=== PATIENT | female | born 1970 | race Caucasian/White ===

== ENCOUNTER → 2018-12-25 | Day surgery (SDC) | payer OTHER ==
[2018-12-21 10:07] VITALS: BMI 26.6
[~2018-12-25] MED LIST: LACTATED RINGERS 1,000 ML IV SCH; LIDOCAINE 1% 20 ML VIAL (10MG/ML) FOR IV START INTRADERMA PRN; MIDAZOLAM 2 MG/2 ML VIAL IV ONE; PROPOFOL 10 MG/ML 20 ML VIAL IV ONE
[2018-12-25 10:54] VITALS: RESP 16; TEMP 97.8
--- NOTE | 2018-12-25 13:19 | P.PCN ---
Date of Procedure: 12/25/18 Description of Procedure: BRIEF HISTORY: Patient is a 48-year-old pleasant female scheduled for an elective colonoscopy as a part of investigation of altered bowel function and diarrhea. No prior colonoscopy reported. No family history of colon cancer. PROCEDURE PERFORMED: Colonoscopy with polypectomy and biopsy. PREOPERATIVE DIAGNOSIS: Diarrhea, altered bowel function, no prior colonoscopy. ESTIMATED BLOOD LOSS: Minimal. IV sedation per Anesthesia. PROCEDURE: After informed consent was obtained, the patient, was brought into the endoscopy unit. IV sedation was administered by Anesthesia under continuous monitoring. Digital rectal examination was normal. Initially the Olympus CF-190 flexible video colonoscope was then inserted in the rectum, gradually advanced into the cecum without any difficulty. Careful examination was performed as the scope was gradually being withdrawn. Ileocecal valve and the appendiceal orifice were visualized and appeared normal. Prep was excellent. Mucosa of the cecum, ascending colon, transverse colon, descending colon, sigmoid colon, and rectum appeared normal. Diminutive 3 mm ascending colon polyp removed with cold forcep polypectomy. Diminutive 2 mm hepatic flexure polyp removed with cold forcep polypectomy. Diminutive 2 mm rectal polyp removed with cold forcep polypectomy. Pedunculated 11 mm sigmoid polyp removed with hot snare polypectomy. Random biopsies of the terminal ileum, right colon and left colon given altered bowel function. Retroflexion was performed in the rectum and no lesions were seen. The patient tolerated the procedure well. IMPRESSION: Diminutive polyps removed with cold forceps polypectomy from the ascending colon, hepatic flexure, and rectum. Pedunculated polyp removed with hot snare polypectomy. Random biopsies of the terminal ileum, right colon and left colon. RECOMMENDATIONS: Findings of this examination were discussed with the patient family. Okay to resume diet. Okay to resume medications. Recommend repeat colonoscopy in 3 years pending pathology from polypectomies. Await pathology from biopsies and polypectomy. Follow-up in gastroenterology clinic as previously scheduled.
[2018-12-25 13:37] VITALS: BP 142/85; PULSE 74
== END | disposition home or self-care (01) ==
LOC: ORWHC2ENDO 10:35
PROVIDERS: ATTEND Internal Medicine
DX: D12.2 Benign neoplasm of ascending colon (principal); D12.3 Benign neoplasm of transverse colon; D12.8 Benign neoplasm of rectum; K63.5 Polyp of colon; Z88.2 Allergy status to sulfonamides; F17.200 Nicotine dependence, unspecified, uncomplicated; Z79.899 Other long term (current) drug therapy
CPT/HCPCS: 88305; 45380; 45385; J2250; J2704

== ENCOUNTER → 2019-01-15 | Outpatient (CLI) | payer OTHER ==
[2019-01-15 18:01] LABS: Gliadin AB IgA, Deaminated NEGATIVE (NEGATIVE); Gliadin AB IgA, Unit 0.2 U/mL; Gliadin AB IgG, Deaminated NEGATIVE (NEGATIVE)
== END | disposition home or self-care (01) ==
LOC: LABWHC1 09:41
PROVIDERS: ATTEND Physician Assistant
DX: R19.7 Diarrhea, unspecified (principal)
CPT/HCPCS: 36415; 83516

== ENCOUNTER 2019-07-18 09:03 | Emergency (ER) | payer OTHER ==
[2019-07-18 09:08] VITALS: TEMP 97.9
[2019-07-18] MEDS ORDERED: SODIUM CHLORIDE 0.9% 1,000 ML IV STA (09:15)
[2019-07-18] MEDS ORDERED: KETOROLAC 30 MG/ML 1 ML VIAL IVP STA (09:15)
--- NOTE | 2019-07-18 09:22 | ED ---
Abdominal Pain HPI - General Chief Complaint: Abdominal Pain Stated Complaint: Kidney stone Time Seen by Provider: 07/18/19 09:10 Source: patient, RN notes reviewed Mode of arrival: ambulatory Limitations: no limitations - History of Present Illness Initial Comments: 49-year-old female presents emergency Department chief complaint of left flank pain. Patient states started yesterday progressively worsened. She states nothing makes it feel better or worse. Patient has tried any [id number] medications, size with no relief of symptoms. Patient states that she's had prior hysterectomy. Patient has urinary frequency no dysuria no hematuria d enies any fevers or chills no nausea vomiting diarrhea constipation out of the usual. She states she has IBS. - Related Data Home Medications Medication Instructions Recorded Confirmed ALPRAZolam [Xanax] 1 mg PO DAILY PRN 12/21/18 12/25/18 Escitalopram [Lexapro] 20 mg PO DAILY 12/21/18 12/25/18 Previous Rx's Medication Instructions Recorded Cyclobenzaprine [Flexeril] 10 mg PO TID PRN #15 tab 07/18/19 Allergies Allergy/AdvReac Type Severity Reaction Status Date / Time Sulfa (Sulfonamide Allergy Rash/Hives Verified 07/18/19 09:08 Antibiotics) Review of Systems ROS Statement: Those systems with pertinent positive or pertinent negative responses have been documented in the HPI. ROS Other: All systems not noted in ROS Statement are negative. Past Medical History Past Medical History: No Reported History Additional Past Medical History / Comment(s): chronic diarrhea History of Any Multi-Drug Resistant Organisms: None Reported Past Surgical History: Hysterectomy Additional Past Surgical History / Comment(s): laparoscopic ovary removed Past Anesthesia/Blood Transfusion Reactions: Motion Sickness, Postoperative Nausea & Vomiting (PONV) Past Psychological History: Anxiety Smoking Status: Current every day smoker Past Alcohol Use History: Daily Past Drug Use History: None Reported - Past Family History Mother Family Medical History: Pulmonary Embolus General Exam Limitations: no limitations General appearance: alert, in no apparent distress Head exam: Present: atraumatic, normocephalic, normal inspection Eye exam: Present: normal appearance, PERRL, EOMI. Absent: scleral icterus, conjunctival injection, periorbital swelling ENT exam: Present: normal exam, normal oropharynx, mucous membranes moist Neck exam: Present: normal inspection, full ROM. Absent: tenderness, meningismus, lymphadenopathy Respiratory exam: Present: normal lung sounds bilaterally. Absent: respiratory distress, wheezes, rales, rhonchi, stridor Cardiovascular Exam: Present: regular rate, normal rhythm, normal heart sounds. Absent: systolic murmur, diastolic murmur, rubs, gallop, clicks GI/Abdominal exam: Present: soft, tenderness (LLQ moderate), normal bowel sounds. Absent: distended, guarding, rebound, rigid Back exam: Present: full ROM, CVA tenderness (L). Absent: tenderness, CVA tenderness (R) Neurological exam: Present: alert, oriented X3, CN II-XII intact Skin exam: Present: warm, dry, intact, normal color. Absent: rash Course Vital Signs 07/18/19 09:05 Temperature 97.9 F Pulse Rate 98 Respiratory 18 Rate Blood Pressure 183/96 O2 Sat by Pulse 99 Oximetry Medical Decision Making - Medical Decision Making 49-year-old female presented for left flank, abdominal pain. Patient's found to have umbilical hernia. There is no other significant findings intermittent to left flank pain. Patient has no weakness, lower extremity pulses are equal bila terally. Abdomen is minimally tender, soft Patient's pain is improved at this time. She will be discharged with follow-up return parameters were discussed. - Lab Data Result diagrams: 07/18/19 09:22 07/18/19 09:22 Lab Results 07/18/19 07/18/19 07/18/19 Range/Units 09:22 09:22 09:22 WBC 6.0 (3.8-10.6) k/uL RBC 4.58 (3.80-5.40) m/uL Hgb 15.3 (11.4-16.0) gm/dL Hct 45.1 (34.0-46.0) % MCV 98.5 (80.0-100.0) fL MCH 33.4 (25.0-35.0) pg MCHC 33.9 (31.0-37.0) g/dL RDW 13.9 (11.5-15.5) % Plt Count 346 (150-450) k/uL Neutrophils % 58 % Lymphocytes % 33 % Monocytes % 5 % Eosinophils % 1 % Basophils % 1 % Neutrophils # 3.5 (1.3-7.7) k/uL Lymphocytes # 2.0 (1.0-4.8) k/uL Monocytes # 0.3 (0-1.0) k/uL Eosinophils # 0.1 (0-0.7) k/uL Basophils # 0.0 (0-0.2) k/uL Sodium 138 (137-145) mmol/L Potassium 4.0 (3.5-5.1) mmol/L Chloride 107 (98-107) mmol/L Carbon Dioxide 23 (22-30) mmol/L Anion Gap 8 mmol/L BUN 11 (7-17) mg/dL Creatinine 0.68 (0.52-1.04) mg/dL Est GFR (CKD-EPI)AfAm >90 (>60 ml/min/1.73 sqM) Est GFR (CKD-EPI)NonAf >90 (>60 ml/min/1.73 sqM) Glucose 103 H (74-99) mg/dL Plasma Lactic Acid Cas 1.6 (0.7-2.0) mmol/L Calcium 9.7 (8.4-10.2) mg/dL Total Bilirubin 0.5 (0.2-1.3) mg/dL AST 40 H (14-36) U/L ALT 49 H (4-34) U/L Alkaline Phosphatase 92 (38-126) U/L Total Protein 7.8 (6.3-8.2) g/dL Albumin 4.5 (3.5-5.0) g/dL Amylase 69 (30-110) U/L Lipase 240 (23-300) U/L Urine Color Urine Appearance (Clear) Urine pH (5.0-8.0) Ur Specific [place] (1.001-1.035) Urine Protein (Negative) Urine Glucose (UA) (Negative) Urine Ketones (Negative) Urine Blood (Negative) Urine Nitrite (Negative) Urine Bilirubin (Negative) Urine Urobilinogen (<2.0) mg/dL Ur Leukocyte Esterase (Negative) 07/18/19 Range/Units 09:45 WBC (3.8-10.6) k/uL RBC (3.80-5.40) m/uL Hgb (11.4-16.0) gm/dL Hct (34.0-46.0) % MCV (80.0-100.0) fL MCH (25.0-35.0) pg MCHC (31.0-37.0) g/dL RDW (11.5-15.5) % Plt Count (150-450) k/uL Neutrophils % % Lymphocytes % % Monocytes % % Eosinophils % % Basophils % % Neutrophils # (1.3-7.7) k/uL Lymphocytes # (1.0-4.8) k/uL Monocytes # (0-1.0) k/uL Eosinophils # (0-0.7) k/uL Basophils # (0-0.2) k/uL Sodium (137-145) mmol/L Potassium (3.5-5.1) mmol/L Chloride (98-107) mmol/L Carbon Dioxide (22-30) mmol/L Anion Gap mmol/L BUN (7-17) mg/dL Creatinine (0.52-1.04) mg/dL Est GFR (CKD-EPI)AfAm (>60 ml/min/1.73 sqM) Est GFR (CKD-EPI)NonAf (>60 ml/min/1.73 sqM) Glucose (74-99) mg/dL Plasma Lactic Acid Cas (0.7-2.0) mmol/L Calcium (8.4-10.2) mg/dL Total Bilirubin (0.2-1.3) mg/dL AST (14-36) U/L ALT (4-34) U/L Alkaline Phosphatase (38-126) U/L Total Protein (6.3-8.2) g/dL Albumin (3.5-5.0) g/dL Amylase (30-110) U/L Lipase (23-300) U/L Urine Color Yellow Urine Appearance Clear (Clear) Urine pH 6.0 (5.0-8.0) Ur Specific [place] 1.029 (1.001-1.035) Urine Protein Trace H (Negative) Urine Glucose (UA) Negative (Negative) Urine Ketones Trace H (Negative) Urine Blood Negative (Negative) Urine Nitrite Negative (Negative) Urine Bilirubin Negative (Negative) Urine Urobilinogen 3.0 (<2.0) mg/dL Ur Leukocyte Esterase Negative (Negative) Disposition Clinical Impression: Umbilical hernia, Left flank pain Disposition: HOME SELF-CARE Condition: Stable Instructions (If sedation given, give patient instructions): Abdominal Pain (ED) Additional Instructions: Please return to the Emergency Department if symptoms worsen or any other concerns. Prescriptions: Cyclobenzaprine [Flexeril] 10 mg PO TID PRN #15 tab PRN Reason: Muscle Spasm Is patient prescribed a controlled substance at d/c from ED?: No Referrals: Greyson Butt MD [Primary Care Provider] - 1-2 days Carlos Kelly MD [STAFF PHYSICIAN] - 1-2 days Time of Disposition: 10:37
[2019-07-18 09:40] LABS: Basophils % (A) 1 %; Eosinophils # (A) 0.1 k/uL (0-0.7); Eosinophils % (A) 1 %; HCT 45.1 % (34.0-46.0); HGB 15.3 gm/dL (11.4-16.0); Lymphocytes % (A) 33 %; MCH 33.4 pg (25.0-35.0); MCHC 33.9 g/dL (31.0-37.0); MCV 98.5 fL (80.0-100.0); Mean Platelet Volume 6.6; Monocytes # (A) 0.3 k/uL (0-1.0); Monocytes % (A) 5 %; Neutrophils # (A) 3.5 k/uL (1.3-7.7); Neutrophils % (A) 58 %; Platelet Count 346 k/uL (150-450); RBC 4.58 m/uL (3.80-5.40); RDW 13.9 % (11.5-15.5)
[2019-07-18 09:45] LABS: ALT 49 U/L (4-34); AST 40 U/L (14-36); African American GFR (CKD) >90 (>60 ml/min/1.73 sqM); Albumin 4.5 g/dL (3.5-5.0); Alkaline Phosphatase 92 U/L (38-126); Amylase 69 U/L (30-110); Anion Gap 8 mmol/L; Blood Urea Nitrogen 11 mg/dL (7-17); Calcium 9.7 mg/dL (8.4-10.2); Carbon Dioxide 23 mmol/L (22-30); Chloride 107 mmol/L (98-107); Glucose 103 mg/dL (74-99); Non-African American GFR(CKD) >90 (>60 ml/min/1.73 sqM); Sodium 138 mmol/L (137-145); Total Bilirubin 0.5 mg/dL (0.2-1.3); Total Protein 7.8 g/dL (6.3-8.2)
[2019-07-18] MEDS ORDERED: ONDANSETRON 4 MG/2 ML VIAL IVP STA (10:06)
[2019-07-18] MEDS ORDERED: MORPHINE SULFATE 4 MG/ML SYRINGE IVP STA (10:06)
[2019-07-18 10:12] LABS: Appearance,Urine Clear (Clear); Bilirubin,Urine Negative (Negative); Blood,Urine Negative (Negative); Color,Urine Yellow; Glucose,Urine (UA) Negative (Negative); Ketones,Urine Trace (Negative); Leukocyte Esterase,Urine Negative (Negative); Nitrite,Urine Negative (Negative); Protein,Urine Trace (Negative); Specific Gravity,Urine 1.029 (1.001-1.035)
--- NOTE | 2019-07-18 10:18 | CT ---
EXAMINATION TYPE: CT abdomen pelvis wo con DATE OF EXAM: 07/18/2019 HISTORY: Lt flank pain CT DLP: 622.7 mGycm. Automated Exposure Control for Dose Reduction was Utilized. TECHNIQUE: CT scan of the abdomen and pelvis is performed without oral or IV contrast. COMPARISON: NONE FINDINGS: Within the limitations of a non-contrast study, the following observations are made. LUNG BASES: Mild medial left basilar linear scarring and/or atelectasis. LIVER/GB: Visualized liver is heterogeneously hypodense consistent with diffuse fatty infiltration. C ontracted gallbladder. PANCREAS: No significant abnormality is seen. SPLEEN: No significant abnormality is seen. ADRENALS: No significant abnormality is seen. KIDNEYS: No renal stones or hydronephrosis is seen bilaterally. No intraluminal calculi in the poorly distended bladder. BOWEL: Suboptimal evaluation of bowel without enteric contrast. No suspicious small or large bowel di latation seen. Normal-appearing appendix from cecum in the right upper pelvis. Few scattered colonic diverticula most prominent in the sigmoid colon. No CT evidence for acute diverticulitis. GENITAL ORGANS: Uterus surgically absent or markedly atrophic. LYMPH NODES: No greater than 1cm abdominal or pelvic lymph nodes are appreciated. OSSEOUS STRUCTURES: No significant abnormality is seen. OTHER: Mild calcified plaque of aorta extends into branch vessels. Small umbilical hernia containing fat and tiny mesenteric vessels. IMPRESSION: No renal stones or hydronephrosis is seen bilaterally. No acute finding identified to acc ount for patient's symptoms of left flank pain.
[2019-07-18] MEDS ORDERED: ACET/COD 300 MG/30 MG STARTER PACK 6 TAB BTL PO STA (10:36)
[2019-07-18] MEDS ORDERED: ORPHENADRINE 30 MG/ML 2 ML VIAL IVP STA (10:37)
[2019-07-18 10:57] VITALS: BP 161/91; PULSE 86; RESP 16
== END 2019-07-18 10:57 | disposition home or self-care (01) ==
LOC: EC 09:03
DX: K42.9 Umbilical hernia without obstruction or gangrene (principal); F41.9 Anxiety disorder, unspecified; F17.200 Nicotine dependence, unspecified, uncomplicated; Z79.899 Other long term (current) drug therapy; Z88.2 Allergy status to sulfonamides
CPT/HCPCS: 36415; 80053; 82150; 83605; 83690; 85025; 81003; 74176; 99284; 96374; 96375 ×3; 96361; J2270; J2360; J2405; J1885

== ENCOUNTER 2019-07-20 10:21 | Emergency (ER) | payer OTHER ==
[2019-07-20 10:41] VITALS: TEMP 98.1
[2019-07-20] MEDS ORDERED: MORPHINE SULFATE 4 MG/ML SYRINGE IV STA (10:58)
[2019-07-20] MEDS ORDERED: HYDROmorphone 1 MG/ML 1 ML SYRINGE IVP STA (10:58)
[2019-07-20] MEDS ORDERED: ONDANSETRON 4 MG/2 ML VIAL IVP STA (10:58)
[2019-07-20] MEDS ORDERED: PANTOPRAZOLE 40 MG/10 ML VIAL IVP STA (10:58)
[2019-07-20] MEDS ORDERED: SODIUM CHLORIDE 0.9% 1,000 ML IV STA ×2 (10:58)
--- NOTE | 2019-07-20 11:07 | ED ---
Abdominal Pain HPI - General Chief Complaint: Abdominal Pain Stated Complaint: lower L abd pain Time Seen by Provider: 07/20/19 10:44 Source: patient, family, RN notes reviewed, old records reviewed Mode of arrival: ambulatory Limitations: no limitations - History of Present Illness Initial Comments: 49-year-old male presents today [id number] for concern for left-sided abdominal pain. Patient is in the emergency room 2 days ago for similar complaints. At that Time she believed she was having kidney stone. Full evaluation and CT without contrast showed no acute process besides small umbilical hernia. Patient reports she is continued to have some left-sided flank discomfort, and has been rubbing the area. She reports bruises to the areas she has been massaging. She denies any nausea or vomiting. Does report she did have a normal bowel movement yesterday. Surgical history includes hysterectomy. - Related Data Home Medications Medication Instructions Recorded Confirmed ALPRAZolam [Xanax] 1 mg PO DAILY PRN 12/21/18 07/20/19 Escitalopram [Lexapro] 20 mg PO HS 12/21/18 07/20/19 Previous Rx's Medication Instructions Recorded Cyclobenzaprine [Flexeril] 10 mg PO TID PRN #15 tab 07/18/19 HYDROcodone/APAP 5-325MG [[place] 1 tab PO Q6HR PRN #10 tab 07/20/19 5-325] Allergies Allergy/AdvReac Type Severity Reaction Status Date / Time Sulfa (Sulfonamide Allergy Rash/Hives Verified 07/20/19 13:33 Antibiotics) Review of Systems ROS Statement: Those systems with pertinent positive or pertinent negative responses have been documented in the HPI. ROS Other: All systems not noted in ROS Statement are negative. Past Medical History Past Medical History: No Reported History Additional Past Medical History / Comment(s): chronic diarrhea History of Any Multi-Drug Resistant Organisms: None Reported Past Surgical History: Hysterectomy Additional Past Surgical History / Comment(s): laparoscopic ovary removed Past Anesthesia/Blood Transfusion Reactions: Motion Sickness, Postoperative Nausea & Vomiting (PONV) Past Psychological History: Anxiety Smoking Status: Current every day smoker Past Alcohol Use History: Daily Past Drug Use History: None Reported - Past Family History Mother Family Medical History: Pulmonary Embolus General Exam - General Exam Comments Initial Comments: 49 year old female, no acute distress. Limitations: no limitations General appearance: alert, in no apparent distress Head exam: Present: atraumatic, normocephalic, normal inspection Eye exam: Present: normal appearance, PERRL, EOMI. Absent: scleral icterus, conjunctival injection, periorbital swelling ENT exam: Present: normal exam, mucous membranes moist Neck exam: Present: normal inspection. Absent: tenderness, meningismus, lymphadenopathy Respiratory exam: Present: normal lung sounds bilaterally. Absent: respiratory distress, wheezes, rales, rhonchi, stridor Cardiovascular Exam: Present: regular rate, normal rhythm, normal heart sounds. Absent: systolic murmur, diastolic murmur, rubs, gallop, clicks GI/Abdominal exam: Present: soft, tenderness (Tenderness over L flank, small bruises over R flank and lower back), normal bowel sounds. Absent: distended, guarding, rebound, rigid Extremities exam: Present: normal inspection, full ROM, normal capillary refill. Absent: tenderness, pedal edema, joint swelling, calf tenderness Back exam: Present: normal inspection Neurological exam: Present: alert, oriented X3, CN II-XII intact Psychiatric exam: Present: normal affect, normal mood Skin exam: Present: warm, dry, intact, normal color. Absent: rash Course Vital Signs 07/20/19 07/20/19 07/20/19 10:37 11:30 12:30 Temperature 98.1 F Pulse Rate 101 H 78 Respiratory 18 16 16 Rate Blood Pressure 184/81 183/91 188/92 O2 Sat by Pulse 97 97 97 Oximetry 07/20/19 07/20/19 13:00 13:53 Temperature Pulse Rate 80 Respiratory 16 Rate Blood Pressure 170/86 155/87 O2 Sat by Pulse 97 97 Oximetry Medical Decision Making - Medical Decision Making Patient is a 49 year old female for reevaluation for L flank pain. Patient reports pain is worse with movement, but denies nausea or vomiting. 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 Patient does have normal labs again today, and normal UA. Patient has been advised to follow up with PCP and has appt on tuesday. Patient CT scan reviewed from 2 days ago with no significant cause for pain, and patient is agreeable to avoid another CT or further imaging at this time. Discussed return parameters. - Lab Data Result diagrams: 07/20/19 11:15 07/20/19 11:15 Lab Results 07/20/19 07/20/19 07/20/19 Range/Units 11:15 11:15 11:15 WBC 5.1 (3.8-10.6) k/uL RBC 4.46 (3.80-5.40) m/uL Hgb 14.3 (11.4-16.0) gm/dL Hct 44.5 (34.0-46.0) % MCV 99.7 (80.0-100.0) fL MCH 32.0 (25.0-35.0) pg MCHC 32.1 (31.0-37.0) g/dL RDW 13.6 (11.5-15.5) % Plt Count 298 (150-450) k/uL Neutrophils % 52 % Lymphocytes % 37 % Monocytes % 5 % Eosinophils % 2 % Basophils % 1 % Neutrophils # 2.7 (1.3-7.7) k/uL Lymphocytes # 1.9 (1.0-4.8) k/uL Monocytes # 0.3 (0-1.0) k/uL Eosinophils # 0.1 (0-0.7) k/uL Basophils # 0.0 (0-0.2) k/uL PT 10.1 (9.0-12.0) sec INR 1.0 (<1.2) APTT 21.2 L (22.0-30.0) sec Sodium 137 (137-145) mmol/L Potassium 4.1 (3.5-5.1) mmol/L Chloride 107 (98-107) mmol/L Carbon Dioxide 26 (22-30) mmol/L Anion Gap 4 mmol/L BUN 10 (7-17) mg/dL Creatinine 0.69 (0.52-1.04) mg/dL Est GFR (CKD-EPI)AfAm >90 (>60 ml/min/1.73 sqM) Est GFR (CKD-EPI)NonAf >90 (>60 ml/min/1.73 sqM) Glucose 106 H (74-99) mg/dL Calcium 9.3 (8.4-10.2) mg/dL Total Bilirubin 0.4 (0.2-1.3) mg/dL AST 33 (14-36) U/L ALT 43 H (4-34) U/L Alkaline Phosphatase 78 (38-126) U/L Troponin I (0.000-0.034) ng/mL Total Protein 7.1 (6.3-8.2) g/dL Albumin 4.1 (3.5-5.0) g/dL Amylase 41 (30-110) U/L Lipase 126 (23-300) U/L Urine Color Urine Appearance (Clear) Urine pH (5.0-8.0) Ur Specific [place] (1.001-1.035) Urine Protein (Negative) Urine Glucose (UA) (Negative) Urine Ketones (Negative) Urine Blood (Negative) Urine Nitrite (Negative) Urine Bilirubin (Negative) Urine Urobilinogen (<2.0) mg/dL Ur Leukocyte Esterase (Negative) 07/20/19 07/20/19 Range/Units 11:15 11:30 WBC (3.8-10.6) k/uL RBC (3.80-5.40) m/uL Hgb (11.4-16.0) gm/dL Hct (34.0-46.0) % MCV (80.0-100.0) fL MCH (25.0-35.0) pg MCHC (31.0-37.0) g/dL RDW (11.5-15.5) % Plt Count (150-450) k/uL Neutrophils % % Lymphocytes % % Monocytes % % Eosinophils % % Basophils % % Neutrophils # (1.3-7.7) k/uL Lymphocytes # (1.0-4.8) k/uL Monocytes # (0-1.0) k/uL Eosinophils # (0-0.7) k/uL Basophils # (0-0.2) k/uL PT (9.0-12.0) sec INR (<1.2) APTT (22.0-30.0) sec Sodium (137-145) mmol/L Potassium (3.5-5.1) mmol/L Chloride (98-107) mmol/L Carbon Dioxide (22-30) mmol/L Anion Gap mmol/L BUN (7-17) mg/dL Creatinine (0.52-1.04) mg/dL Est GFR (CKD-EPI)AfAm (>60 ml/min/1.73 sqM) Est GFR (CKD-EPI)NonAf (>60 ml/min/1.73 sqM) Glucose (74-99) mg/dL Calcium (8.4-10.2) mg/dL Total Bilirubin (0.2-1.3) mg/dL AST (14-36) U/L ALT (4-34) U/L Alkaline Phosphatase (38-126) U/L Troponin I <0.012 (0.000-0.034) ng/mL Total Protein (6.3-8.2) g/dL Albumin (3.5-5.0) g/dL Amylase (30-110) U/L Lipase (23-300) U/L Urine Color Light Yellow Urine Appearance Clear (Clear) Urine pH 5.0 (5.0-8.0) Ur Specific [place] 1.004 (1.001-1.035) Urine Protein Negative (Negative) Urine Glucose (UA) Negative (Negative) Urine Ketones Negative (Negative) Urine Blood Negative (Negative) Urine Nitrite Negative (Negative) Urine Bilirubin Negative (Negative) Urine Urobilinogen <2.0 (<2.0) mg/dL Ur Leukocyte Esterase Negative (Negative) 07/20/19 12:59 EKG performed at 1113 shows normal sinus rhythm normal EKG. Ventricular rate of 85 bpm. ND interval 140 ms. QS duration is 74 ms. QT QTc is 350/426 no seconds. - Radiology Data Radiology results: report reviewed KUB shows normal bowel gas pattern. Disposition Clinical Impression: Left flank pain Disposition: HOME SELF-CARE Condition: Good Instructions (If sedation given, give patient instructions): Abdominal Pain (ED) Additional Instructions: Continue anti-inflammatory medication as prescribed. Recommended follow-up through primary care doctor is discussed on Tuesday. There is any fever vomiting or other complaints return to the ED for reevaluation. Prescriptions: HYDROcodone/APAP 5-325MG [[place] 5-325] 1 tab PO Q6HR PRN #10 tab PRN Reason: Pain Is patient prescribed a controlled substance at d/c from ED?: No Referrals: Greyson Butt MD [Primary Care Provider] - 1-2 days Time of Disposition: 13:32
[2019-07-20 11:43] LABS: Basophils % (A) 1 %; Eosinophils # (A) 0.1 k/uL (0-0.7); Eosinophils % (A) 2 %; HCT 44.5 % (34.0-46.0); HGB 14.3 gm/dL (11.4-16.0); Lymphocytes # (A) 1.9 k/uL (1.0-4.8); Lymphocytes % (A) 37 %; MCHC 32.1 g/dL (31.0-37.0); MCV 99.7 fL (80.0-100.0); Mean Platelet Volume 7.1; Monocytes # (A) 0.3 k/uL (0-1.0); Monocytes % (A) 5 %; Neutrophils # (A) 2.7 k/uL (1.3-7.7); Neutrophils % (A) 52 %; Platelet Count 298 k/uL (150-450); RBC 4.46 m/uL (3.80-5.40); RDW 13.6 % (11.5-15.5); WBC 5.1 k/uL (3.8-10.6)
[2019-07-20 11:47] LABS: ALT 43 U/L (4-34); AST 33 U/L (14-36); African American GFR (CKD) >90 (>60 ml/min/1.73 sqM); Albumin 4.1 g/dL (3.5-5.0); Alkaline Phosphatase 78 U/L (38-126); Amylase 41 U/L (30-110); Anion Gap 4 mmol/L; Blood Urea Nitrogen 10 mg/dL (7-17); Calcium 9.3 mg/dL (8.4-10.2); Carbon Dioxide 26 mmol/L (22-30); Chloride 107 mmol/L (98-107); Glucose 106 mg/dL (74-99); Non-African American GFR(CKD) >90 (>60 ml/min/1.73 sqM); Potassium 4.1 mmol/L (3.5-5.1); Sodium 137 mmol/L (137-145); Total Bilirubin 0.4 mg/dL (0.2-1.3); Total Protein 7.1 g/dL (6.3-8.2)
[2019-07-20 11:49] LABS: Prothrombin Time 10.1 sec (9.0-12.0)
[2019-07-20 12:03] LABS: Appearance,Urine Clear (Clear); Bilirubin,Urine Negative (Negative); Blood,Urine Negative (Negative); Color,Urine Light Yellow; Glucose,Urine (UA) Negative (Negative); Ketones,Urine Negative (Negative); Leukocyte Esterase,Urine Negative (Negative); Nitrite,Urine Negative (Negative); Protein,Urine Negative (Negative); Specific Gravity,Urine 1.004 (1.001-1.035); Urobilinogen,Urine <2.0 mg/dL (<2.0)
--- NOTE | 2019-07-20 12:05 | XR ---
EXAMINATION TYPE: XR KUB DATE OF EXAM: 07/20/2019 11:59 AM CLINICAL HISTORY: Left lower quadrant abdominal pain TECHNIQUE: Single upright image of the abdomen is obtained. COMPARISON: None. FINDINGS: No pneumoperitoneum is seen. Lung bases are well aerated. The liver is elongated. Mild levo scoliosis of the lumbar spine. No dilated large or small bowel. No suspicious calcification in the ab domen or pelvis. IMPRESSION: Nonobstructive bowel gas pattern.
[2019-07-20 12:12] LABS: Partial Thromboplastin Time 21.2 sec (22.0-30.0)
[2019-07-20 13:53] VITALS: RESP 16
[2019-07-20 13:57] VITALS: BP 155/87; PULSE 80
== END 2019-07-20 14:03 | disposition home or self-care (01) ==
LOC: EC 10:21
DX: R10.32 Left lower quadrant pain (principal); F41.9 Anxiety disorder, unspecified; F17.200 Nicotine dependence, unspecified, uncomplicated; Z79.899 Other long term (current) drug therapy; Z88.2 Allergy status to sulfonamides; Z90.710 Acquired absence of both cervix and uterus
CPT/HCPCS: 36415; 93005; 80053; 82150; 83690; 84484; 85025; 85610; 85730; 81003; 74018; 99284; 96374; 96375 ×2; 96361 ×2; J2405; J1170; C9113

== ENCOUNTER → 2019-09-20 | Outpatient (CLI) | payer OTHER ==
--- NOTE | 2019-09-21 08:53 | MM ---
Reason for exam: screening (asymptomatic). Last mammogram was performed 6 years and 5 months ago. History: Patient is postmenopausal and had first child at age 34. Took progesterone for 6 months. Physical Findings: A clinical breast exam by your physician is recommended on an annual basis and results should be correlated with mammographic findings. MG Screening Mammo w CAD Bilateral CC and MLO view(s) were taken. Prior study comparison: April 17, 2013, bilateral digital screening mammo w/CAD. November 26, 2010, bilateral digital screening mammo w/CAD. The breast tissue is heterogeneously dense. This may lower the sensitivity of mammography. Central and medial right breast nodularity not well seen previously. ASSESSMENT: Incomplete: need additional imaging evaluation, BI-RAD 0 RECOMMENDATION: Special view mammogram of the right breast. If lesion persists on supplemental views, image directed ultrasound is recommended. [facility] will attempt to contact patient to return for supplemental views and ultrasound if indicated.
== END | disposition home or self-care (01) ==
LOC: RADMAMWWP 07:14
PROVIDERS: ATTEND Family Medicine
DX: Z12.31 Encounter for screening mammogram for malignant neoplasm of breast (principal)
CPT/HCPCS: 77067

== ENCOUNTER → 2019-09-26 | Outpatient (CLI) | payer OTHER ==
--- NOTE | 2019-09-26 08:36 | MM ---
Reason for exam: additional evaluation requested from abnormal screening. Last mammogram was performed less than 1 month ago. History: Patient is postmenopausal and had first child at age 34. Took progesterone for 6 months. Physical Findings: Nurse Summary: 0.5 x 0.5cm nodule in the right breast at 12 o'clock (nurse ts). MG Work Up Mamm w CAD RT Spot compression CC, spot compression MLO, and LM view(s) were taken of the right breast. Prior study comparison: September 20, 2019, bilateral MG screening mammo w CAD. April 17, 2013, bilateral digital screening mammo w/CAD. Densities appear improves. Ultrasound recommended. These results were verbally communicated with the patient and result sheet given to the patient on 09/26/19. ASSESSMENT: Incomplete: need additional imaging evaluation, BI-RAD 0 RECOMMENDATION: Ultrasound of the right breast. Manage patient on a clinical basis.
--- NOTE | 2019-09-26 08:38 | USB ---
Reason for exam: additional evaluation requested from abnormal screening. History: Patient is postmenopausal and had first child at age 34. Took progesterone for 6 months. US Breast Workup Limited RT Right limited breast ultrasound including focal area of concern, retroareolar and axilla demonstrates a 6 x 3 x 6mm cystic cluster at 11 o'clock, a 4 x 3 x 5mm oval, hypoechoic lesion at 12 o'clock BB, duct ectasia at the posterior nipple and a 6mm lymph node at the axilla. These results were verbally communicated with the patient and result sheet given to the patient on 09/26/19. ASSESSMENT: Probably benign, BI-RAD 3 RECOMMENDATION: Follow-up diagnostic mammogram and ultrasound of the right breast in 6 months.
== END | disposition home or self-care (01) ==
LOC: RADMAMWWP 07:10
PROVIDERS: ATTEND Family Medicine
DX: R92.8 Other abnormal and inconclusive findings on diagnostic imaging of breast (principal)
CPT/HCPCS: 77065

== ENCOUNTER 2023-08-22 15:28 | Inpatient (IN) | payer BC, OTHER ==
--- NOTE | 2023-08-22 16:20 | ED ---
Chest Pain HPI - General Source: patient, family, RN notes reviewed Mode of arrival: wheelchair Limitations: no limitations <Joie Nieto - Last Filed: 08/22/23 16:19> - General Source: RN notes reviewed, old records reviewed Mode of arrival: wheelchair Limitations: no limitations - History of Present Illness MD Complaint: chest pain, other (Chills) -: hour(s) Onset: during rest, during exertion Pain Location: substernal, left chest Pain Radiation: none Severity: moderate Severity scale (1-10): 7 Quality: heaviness, sharp Consistency: constant Improves With: nothing Worsens With: nothing Anginal Symptoms: sense of impending doom Other Symptoms: cough, palpitations Treatments Prior to Arrival: none <Branden Sung - Last Filed: 08/29/23 00:07> - General Chief Complaint: Chest Pain Stated Complaint: Chest Pain,Sob Time Seen by Provider: 08/22/23 16:19 - History of Present Illness Initial Comments: Quick note: 53-year-old female presented to the ER with a chief complaint of difficulty breathing. She states earlier today she started to notice it was hurting to breathe. Patient is a current everyday smoker. Denies any history of blood clots. Denies fevers or chills. (Joie Nieto) Is a 53-year-old female to the ER for evaluation. Patient has severe difficulty breathing pain with breathing history of smoking pain with cough pain with congestion no history of blood clots current chest pain here in the ER with significant shaking and fevers (Branden Sung) - Related Data Previous Rx's Medication Instructions Recorded Benzonatate [Tessalon Perles] 100 mg PO TID PRN #30 cap 08/25/23 Budesonide-Formot 160-4.5 Mcg 2 puff INHALATION RT-BID #1 each 08/25/23 [Symbicort 160-4.5 Mcg Inhaler] Folic Acid 1 mg PO DAILY #30 tab 08/25/23 HYDROcodone/APAP 5-325MG [[place] 1 each PO Q6HR PRN #12 tab 08/25/23 5-325] Multivitamins, Thera [Multivitamin 1 each PO DAILY #30 tab 08/25/23 (formulary)] Albuterol Inhaler [Ventolin Hfa 1 puff INHALATION QID PRN #8 gm 08/26/23 Inhaler] Escitalopram [Lexapro] 20 mg PO HS #30 tab 08/26/23 Metoprolol Succinate (ER) [Toprol 25 mg PO DAILY #30 tab 08/26/23 XL] Nicotine 21Mg/24Hr Patch [Habitrol] 1 each TRANSDERM DAILY #6 patch 08/26/23 lisinopriL [Zestril] 10 mg PO DAILY #30 tab 08/26/23 Allergies Allergy/AdvReac Type Severity Reaction Status Date / Time Sulfa (Sulfonamide Allergy Rash/Hives Verified 08/22/23 17:56 Antibiotics) Review of Systems ROS Other: All systems not noted in ROS Statement are negative. <Joie Nieto - Last Filed: 08/22/23 16:19> ROS Other: All systems not noted in ROS Statement are negative. <Branden Sung - Last Filed: 08/29/23 00:07> ROS Statement: Those systems with pertinent positive or pertinent negative responses have been documented in the HPI. EKG Findings - EKG Comments: EKG Findings:: EKG is sinus tachycardia 109 MT 132 QRS 73 QTc 382 - EKG Results: EKG: interpreted by ERMD <Branden Sung - Last Filed: 08/29/23 00:07> Past Medical History Past Medical History: No Reported History, Hypertension Additional Past Medical History / Comment(s): chronic diarrhea History of Any Multi-Drug Resistant Organisms: None Reported Past Surgical History: Hysterectomy Additional Past Surgical History / Comment(s): laparoscopic ovary removed Past Anesthesia/Blood Transfusion Reactions: Motion Sickness, Postoperative Nausea & Vomiting (PONV) Past Psychological History: Anxiety Smoking Status: Current every day smoker Past Alcohol Use History: Daily Past Drug Use History: None Reported - Past Family History Mother Family Medical History: Pulmonary Embolus <Joie Nieto - Last Filed: 08/22/23 16:19> General Exam <Joie Nieto - Last Filed: 08/22/23 16:19> Limitations: altered mental status, physical limitation General appearance: appears intoxicated, anxious Head exam: Present: atraumatic, normocephalic, normal inspection Eye exam: Present: normal appearance, PERRL, EOMI. Absent: scleral icterus, conjunctival injection, periorbital swelling ENT exam: Present: normal exam, mucous membranes moist Neck exam: Present: normal inspection. Absent: tenderness, meningismus, lymphadenopathy Respiratory exam: Present: normal lung sounds bilaterally. Absent: respiratory distress, wheezes, rales, rhonchi, stridor Cardiovascular Exam: Present: normal rhythm, tachycardia, normal heart sounds. Absent: systolic murmur, diastolic murmur, rubs, gallop, clicks GI/Abdominal exam: Present: soft, normal bowel sounds. Absent: distended, tenderness, guarding, rebound, rigid Extremities exam: Present: normal inspection, full ROM, normal capillary refill. Absent: tenderness, pedal edema, joint swelling, calf tenderness Back exam: Present: normal inspection Neurological exam: Present: alert, oriented X3, CN II-XII intact Psychiatric exam: Present: normal affect, normal mood Skin exam: Present: warm, dry, intact, normal color. Absent: rash <Branden Sung - Last Filed: 08/29/23 00:07> - General Exam Comments Initial Comments: Visual Physical Exam Vital signs reviewed General: Well-appearing, nontoxic, no acute distress. Head: Normocephalic, atraumatic Eyes: PERRLA, EOMI ENT: Airway patent Chest: Nonlabored breathing Skin: No visual rash, normal skin tone Neuro: Alert and oriented 3 Musculoskeletal: No gross abnormalities (Joie Nieto) Course <Branden Sung - Last Filed: 08/29/23 00:07> Vital Signs 08/22/23 08/22/23 08/22/23 15:36 19:22 19:48 Temperature 99 F Pulse Rate 114 H 99 93 Respiratory 18 18 Rate Blood Pressure 205/96 177/90 O2 Sat by Pulse 96 94 L Oximetry 08/22/23 08/22/23 08/22/23 19:58 20:16 23:20 Temperature 97.8 F Pulse Rate 97 83 Respiratory 20 Rate Blood Pressure 172/83 128/70 O2 Sat by Pulse 95 Oximetry - Reevaluation(s) Reevaluation #1: 08/22/23 18:40 Records reviewed (Branden Sung) Reevaluation #2: 08/22/23 18:40 Patient symptoms unchanged (Branden Sung) Reevaluation #3: 08/22/23 18:40 Informed of results and questions were answered Studies Chest x-ray and CTA chest are negative for acute disease (Branden Sung) Reevaluation #4: Was pt. sent in by a medical professional or institution (ARNOLD Araiza, [employer], urgent care, hospital, or custodial...) When possible be specific @ -no Did you speak to anyone other than the patient for history (EMS, parent, family, police, friend...)? What history was obtained from this source @ -no Did you review nursing and triage notes (agree or disagree)? Why? @ -agree Are old charts reviewed (outside hosp., previous admission, EMS record, old EKG, old radiological studies, urgent care reports/EKG's, custodial records)? Report findings @ -yes Differential Diagnosis (chest pain, altered mental status, abdominal pain women, abdominal pain men, vaginal bleeding, weakness, fever, dyspnea, syncope, headache, dizziness, GI bleed, back pain, seizure, CVA, palpatations, mental health, musculoskeletal)? @ -prior EKG interpreted by me (3pts min.). @ -yes X-rays interpreted by me (1pt min.). @ -yes negative for acute disease CT interpreted by me (1pt min.). @ -Yes negative for acute disease U/S interpreted by me (1pt. min.). @ -no What testing was considered but not performed or refused? (CT, X-rays, U/S, labs)? Why? @ -none What meds were considered but not given or refused? Why? @ -none Did you discuss the management of the patient with other professionals (professionals i.e. ARNOLD Araiza, [employer], lab, RT, psych nurse, social media developer, lock and dam equipment repairer, teacher, child support officer, behavioral health case manager)? Give summary @ -no Was smoking cessation discussed for >3mins.? @ -no Were there social determinants of health that impacted care today? How? (Homelessness, low income, unemployed, alcoholism, drug addiction, transportation, low edu. Level, literacy, decrease access to med. care, group home, rehab)? @ -none Was there de-escalation of care discussed even if they declined (Discuss DNR or withdrawal of care, Hospice)? DNR status @ -no What co-morbidities impacted this encounter? (DM, HTN, Smoking, COPD, CAD, Cancer, CVA, ARF, Chemo, Hep., AIDS, mental health diagnosis, sleep apnea, morbid obesity)? @ -none Was patient admitted / discharged? Hospital course, mention meds given and route, prescriptions, significant lab abnormalities, going to OR and other pertinent info. @ - 53 female will be admitted for chest pain observation for uncontrolled hypertensive urgency Admitted Was critical care preformed (if so, how long)? @ -no Undiagnosed new problem with uncertain prognosis? @ -no Drug Therapy requiring intensive monitoring for toxicity (Heparin, Nitro, Insu letha, Cardizem)? @ -no Were any procedures done? @ -no Diagnosis/symptom? @ -Hypertensive urgency emergency and chest pain Acute, or Chronic, or Acute on Chronic? @ -Acute Uncomplicated (without systemic symptoms) or Complicated (systemic symptoms)? @ -Complicated Side effects of treatment? @ -no Exacerbation, Progression, or Severe Exacerbation? @ -exacerbation Poses a threat to life or bodily function? How? (Chest pain, [place], [place], pneumonia, PE, COPD, DKA, ARF, appy, cholecystitis, CVA, Diverticulitis, Homicidal, Suicidal, threat to staff... and all critical care pts) @ -yes abnormal vital sign (Branden Sung) Reevaluation #5: Differential Chest Pain: Stable Angina, Unstable Angina, STEMI, NSTEMI Aortic Dissection, Pneumothorax, Musculoskeletal, Esophageal Spasm GERD, Cholecystitis, Pancreatitis, Zoster, this is not meant to be an all-inclusive list. (Branden Sung) - Consultations Consultation #1: Spoke with admitting who agrees to admit this patient (Branden Sung) Chest Pain MDM <Joie Nieto - Last Filed: 08/22/23 16:19> <Branden Sung - Last Filed: 08/29/23 00:07> - MDM I performed the quick note portion of this chart. Electronically signed by Joie Nieto PA-C (Joie Nieto) 53 female will be admitted for chest pain observation for uncontrolled hypertensive urgency (Branden Sung) Critical Care Time Critical Care Time: Yes Total Critical Care Time: 31 <Branden Sung - Last Filed: 08/29/23 00:07> Disposition <Joie Nieto - Last Filed: 08/22/23 16:19> Is patient prescribed a controlled substance at d/c from ED?: No <Branden Sung - Last Filed: 08/29/23 00:07> Clinical Impression: Chest pain, Hypertensive urgency Disposition: ADMITTED IP TO THIS HOSP Condition: Fair
--- NOTE | 2023-08-22 16:48 | XR ---
EXAMINATION TYPE: XR chest 2V DATE OF EXAM: 08/22/2023 COMPARISON: NONE HISTORY: Chest pain TECHNIQUE: Frontal and lateral views of the chest are obtained. FINDINGS: There is no focal air space opacity, pleural effusion, or pneumothorax seen. The cardiac silhouette size is within normal limits. The osseous structures are intact. IMPRESSION: No acute cardiopulmonary process.
[2023-08-22] MEDS ORDERED: LORazepam 0.5 MG TAB PO PRN (18:38)
[2023-08-22] MEDS ORDERED: LORazepam 2 MG/ML INJ IV PRN ×3 (18:38)
[2023-08-22] MEDS ORDERED: LORazepam 1 MG TAB PO PRN (18:38)
--- NOTE | 2023-08-22 19:11 | CT ---
EXAMINATION TYPE: CT angio chest DATE OF EXAM: 08/22/2023 6:58 PM COMPARISON: None HISTORY: Chest pain, dyspnea CT DLP: 242.1 mGycm Automated exposure control for dose reduction was used. CONTRAST: CTA scan of the thorax is performed with IV Contrast, patient injected with 100 ml mL of Isovue 370, pulmonary embolism protocol. The post processing was performed. FINDINGS: There are moderate emphysematous changes in the upper lobe predominance there are small subpleural pa renchymal consolidative opacities in the lower lobes posteriorly and in left upper lobe laterally. Th e findings suggest an acute inflammatory process. There is no pleural effusion or pneumothorax. The great vessels of the chest are normal. There are no filling defects within the pulmonary arterial circulation to suggest pulmonary embolus. There is bilateral hilar adenopathy. Right hilar lymph node measures 2.4 cm and a left hilar lymph no de measures 1.5 cm. Limited scanning through the abdomen reveals diffuse fatty infiltration of liver. IMPRESSION: 1. No evidence of pulmonary embolus. 2. Moderate emphysematous changes with an upper lobe predominance. 3. Scattered small focal consolidative opacities in both lower lobes posteriorly and in the left uppe r lobe laterally with bilateral hilar adenopathy. The findings suggest acute inflammatory process. Ne oplasm is not entirely excluded and therefore short-term follow-up to resolution is recommended.
[2023-08-22] MEDS ORDERED: NALOXONE 0.4 MG/ML 1 ML VIAL IV PRN (19:25)
[2023-08-22] MEDS ORDERED: ONDANSETRON 4 MG/2 ML VIAL IVP PRN (19:25)
[2023-08-22] MEDS: KETOROLAC 15 MG/ML 1 ML VIAL IVP STA (19:26)
[2023-08-22] MEDS: LABETALOL 5 MG/ML VIAL MDV IVP STA (19:27)
[2023-08-22 19:34] LABS: Basophils % (A) 1 %; Eosinophils % (A) 0 %; HCT 43.2 % (34.0-46.0); Lymphocytes # (A) 1.5 k/uL (1.0-4.8); Lymphocytes % (A) 20 %; MCHC 32.5 g/dL (31.0-37.0); MCV 101.7 fL (80.0-100.0); Macrocytosis Slight; Monocytes # (A) 0.5 k/uL (0-1.0); Monocytes % (A) 7 %; Neutrophils # (A) 5.5 k/uL (1.3-7.7); Neutrophils % (A) 72 %; Platelet Count 237 k/uL (150-450); RBC 4.25 m/uL (3.80-5.40); RDW 13.2 % (11.5-15.5); WBC 7.7 k/uL (3.8-10.6)
[2023-08-22] MEDS: SODIUM CHLORIDE 0.9% 1,000 ML IV SCH (19:35)
[2023-08-22 19:38] LABS: ALT 46 U/L (4-34); AST 49 U/L (14-36); African American GFR (CKD) >90 (>60 ml/min/1.73 sqM); Albumin 4.8 g/dL (3.5-5.0); Alkaline Phosphatase 89 U/L (38-126); Anion Gap 9 mmol/L; Blood Urea Nitrogen 13 mg/dL (7-17); Calcium 9.5 mg/dL (8.4-10.2); Carbon Dioxide 25 mmol/L (22-30); Chloride 103 mmol/L (98-107); Glucose 83 mg/dL (74-99); Magnesium 1.7 mg/dL (1.6-2.3); Non-African American GFR(CKD) >90 (>60 ml/min/1.73 sqM); Potassium 4.7 mmol/L (3.5-5.1); Sodium 137 mmol/L (137-145); Total Bilirubin 1.1 mg/dL (0.2-1.3); Total Protein 7.7 g/dL (6.3-8.2)
[2023-08-22 19:42] LABS: INR 0.9 (<1.2); Prothrombin Time 9.8 sec (10.0-12.5)
[2023-08-22] MEDS: IPRATROPIUM-ALBUTEROL 3 ML NEB INHALATION STA (19:47)
[2023-08-22 20:23] LABS: Lipase 148 U/L (23-300)
[2023-08-22 20:33] LABS: NT-Pro-B-Type Natriuretic Pept 126 pg/mL
[2023-08-22] MEDS: MORPHINE SULFATE 4 MG/ML SYRINGE IV PRN (21:18)
[2023-08-23 09:02] LABS: Basophils # (A) 0.02 X 10*3/uL (0.00-0.10); Basophils % (A) 0.4 %; Eosinophils # (A) 0.03 X 10*3/uL (0.04-0.35); Eosinophils % (A) 0.6 %; HCT 35.8 % (37.2-46.3); Lymphocytes # (A) 1.34 X 10*3/uL (0.90-5.00); Lymphocytes % (A) 26.3 %; MCHC 33.5 g/dL (32.0-37.0); MCV 101.4 FL (80.0-97.0); Mean Platelet Volume 9.8 FL (9.5-12.2); Monocytes # (A) 0.58 X 10*3/uL (0.20-1.00); Monocytes % (A) 11.4 %; NRBC Per 100 WBC 0 X 10*3/uL (0.00-0.01); Neutrophils # (A) 3.12 X 10*3/uL (1.80-7.70); Neutrophils % (A) 61.1 %; Platelet Count 184 X 10*3/uL (140-440); RBC 3.53 X 10*6/uL (4.10-5.20); RDW 13.8 % (11.5-14.5)
[2023-08-23 09:11] LABS: ALT 36 U/L (8-44); AST 29 U/L (13-35); Albumin 3.9 g/dL (3.8-4.9); Albumin/Globulin Ratio 1.77 Ratio (1.60-3.17); Alkaline Phosphatase 70 U/L (41-126); BUN/Creat Ratio 20.17 Ratio (12.00-20.00); Blood Urea Nitrogen 12.1 mg/dL (9.0-27.0); Calcium 8.8 mg/dL (8.7-10.3); Carbon Dioxide 25.5 mmol/L (21.6-31.8); Chloride 103 mmol/L (96-109); Globulin 2.2 g/dL (1.6-3.3); Glucose 89 mg/dL (70-110); Magnesium 1.9 mg/dL (1.5-2.4); Phosphorus 3.5 mg/dL (2.4-5.1); Potassium 3.9 mmol/L (3.5-5.5); Sodium 141 mmol/L (135-145); Total Bilirubin 0.5 mg/dL (0.3-1.2); Total Protein 6.1 g/dL (6.2-8.2)
[2023-08-23] MEDS ORDERED: guaiFENesin SYRUP 100MG/5ML 200 MG/10 ML CUP PO PRN (09:27)
[2023-08-23] MEDS ORDERED: ACETAMINOPHEN TAB 325 MG TAB PO PRN (09:27)
[2023-08-23] MEDS ORDERED: BENZOCAINE/MENTHOL LOZENG 1 EACH LOZENGE MUCOUS MEM PRN (09:27)
[2023-08-23] MEDS: FOLIC ACID 1 MG TAB PO SCH (09:29)
[2023-08-23] MEDS: ASPIRIN 81 MG PO SCH (09:29)
[2023-08-23] MEDS: METOPROLOL SUCCINATE (ER) 25 MG TAB.ER.24H PO SCH (09:29)
[2023-08-23] MEDS: MULTIVITAMINS, THERA 1 EACH TAB PO SCH (09:29)
[2023-08-23] MEDS ORDERED: METOPROLOL SUCCINATE (ER) 25 MG TAB.ER.24H PO SCH (09:30)
[2023-08-23] MEDS: IPRATROPIUM-ALBUTEROL 3 ML NEB INHALATION PRN (09:35)
[2023-08-23] MEDS: KETOROLAC 15 MG/ML 1 ML VIAL IVP STA (10:44)
--- NOTE | 2023-08-23 10:44 | P.CRDCN ---
History of Present Illness Consult date: 08/23/23 Consult reason: chest pain History of present illness: This is a 53-year-old female with no previous cardiac history. 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 We have been asked to evaluate the patient for chest pain. Patient states she had chest pain that was starting on the left lateral chest wall in the lower rib area and went around to her back and to the right and was a squeezing type sensation. She denies having any trauma or no he shannon lifting that would strain her muscles. She states the pain is significant with deep breathing. She is a smoker 1 pack/day. She also presented with alcohol intoxication and is currently on the [facility] protocol. Her initial blood pressure was 205/96 and heart rate 114. EKG: Sinus rhythm 109 bpm, no acute ST-T wave changes. Chest x-ray: No acute process CTA of the chest no pulmonary embolus. Moderate emphysematous changes within upper lobe predominance. Scattered small focal consolidative opacities in both lower lobes posteriorly and in the left upper lobe laterally with bilateral hilar adenopathy. Laboratory studies: Troponin negative x 3. Hemoglobin 14. D-dimer 0.42. Creatinine 0.55. AST 49, ALT 46. proBNP 126. Home cardiac medications: Metoprolol succinate 25 mg daily Review Of Systems: At the time of my exam: CONSTITUTIONAL: Denies fever or chills. HEENT: Denies blurred vision, vision changes, or eye pain. Denies hemoptysis CARDIOVASCULAR: Reports chest pain. Denies orthopnea. Denies PND. Denies palpitations RESPIRATORY: Denies shortness of breath. GASTROINTESTINAL: Denies abdominal pain. Denies nausea or vomiting. HEMATOLOGIC: Denies bleeding disorders. GENITOURINARY: Denies any blood in urine. SKIN: Denies puritis. Denies rash. Physical examination: Gen: This is a 53-year-old female in no acute distress VS: reviewed, blood pressure 140/68, heart rate 81, pulse ox 95% on room air. HEENT: Head is atraumatic, normocephalic. Pupils equal, round. Sclerae is a nicteric. NECK: Supple. No JVD. LUNGS: Clear to auscultation. No wheezes or rhonchi. No intercostal retractions. HEART: Regular rate and rhythm. No murmur. ABDOMEN: Soft No tenderness. EXTREMITIES: No pedal edema. No calf tenderness. NEUROLOGICAL: Patient is awake, alert and oriented x3. Assessment: Noncardiac chest pain Chest pain secondary to musculoskeletal or pulmonary etiology Abnormal CT of the chest Hypertension Tobacco use and dependence Plan: Change metoprolol tartrate to metoprolol succinate 25 mg daily No further cardiac workup at this time Cardiology will sign off this case and follow on an as-needed basis. Please reconsult for any new concerns. Thank you kindly for this consultation. Nurse practitioner note has been reviewed, I agree with documented findings and plan of care. Patient was seen and examined. Past Medical History Past Medical History: No Reported History, Hypertension Additional Past Medical History / Comment(s): chronic diarrhea History of Any Multi-Drug Resistant Organisms: None Reported Past Surgical History: Hysterectomy Additional Past Surgical History / Comment(s): laparoscopic ovary removed Past Anesthesia/Blood Transfusion Reactions: Motion Sickness, Postoperative Na usea & Vomiting (PONV) Past Psychological History: Anxiety Smoking Status: Current every day smoker Past Alcohol Use History: Daily Additional Past Alcohol Use History / Comment(s): smoker 30 years 1/2ppd Past Drug Use History: None Reported - Past Family History Mother Family Medical History: Pulmonary Embolus Medications and Allergies Home Medications Medication Instructions Recorded Confirmed Type Escitalopram [Lexapro] 20 mg PO HS 12/21/18 08/22/23 History Metoprolol Succinate (ER) [Toprol 25 mg PO DAILY 08/22/23 08/22/23 History Xl] Allergies Allergy/AdvReac Type Severity Reaction Status Date / Time Sulfa (Sulfonamide Allergy Rash/Hives Verified 08/22/23 17:56 Antibiotics) Physical Exam Vitals: Vital Signs Temp Pulse Pulse Resp BP BP Pulse Ox 08/23/23 00:33 98.7 F 81 16 140/68 95 08/22/23 23:20 97.8 F 83 20 128/70 95 08/22/23 20:16 172/83 08/22/23 19:58 97 08/22/23 19:48 93 08/22/23 19:22 99 18 177/90 94 L 08/22/23 15:36 99 F 114 H 18 205/96 96 Intake and Output 08/22/23 08/23/23 08/23/23 22:59 06:59 14:59 Other: # Voids 1 Weight 58.967 kg Results 08/23/23 04:31 08/23/23 04:31 Cardiac Enzymes 08/22/23 08/22/23 08/22/23 Range/Units 18:07 18:07 19:24 AST 49 H (14-36) U/L Troponin I <0.012 <0.012 (0.000-0.034) ng/mL 08/22/23 Range/Units 23:49 AST (14-36) U/L Troponin I <0.012 (0.000-0.034) ng/mL Coagulation 08/22/23 Range/Units 18:07 PT 9.8 L (10.0-12.5) sec APTT 23.0 (22.0-30.0) sec CBC 08/22/23 Range/Units 18:07 WBC 7.7 (3.8-10.6) k/uL RBC 4.25 (3.80-5.40) m/uL Hgb 14.0 (11.4-16.0) gm/dL Hct 43.2 (34.0-46.0) % Plt Count 237 (150-450) k/uL Comprehensive Metabolic Panel 08/22/23 Range/Units 18:07 Sodium 137 (137-145) mmol/L Potassium 4.7 (3.5-5.1) mmol/L Chloride 103 (98-107) mmol/L Carbon Dioxide 25 (22-30) mmol/L BUN 13 (7-17) mg/dL Creatinine 0.55 (0.52-1.04) mg/dL Glucose 83 (74-99) mg/dL Calcium 9.5 (8.4-10.2) mg/dL AST 49 H (14-36) U/L ALT 46 H (4-34) U/L Alkaline Phosphatase 89 (38-126) U/L Total Protein 7.7 (6.3-8.2) g/dL Albumin 4.8 (3.5-5.0) g/dL Current Medications Generic Name Dose Route Start Last Admin Trade Name Freq PRN Reason Stop Dose Admin Albuterol/Ipratropium 3 ml 08/22/23 19:25 Ipratropium-Albuterol 3 Ml Neb INHALATION RT-QID PRN Shortness Of Breath Or Wheezing Folic Acid 1 mg 08/23/23 09:00 Folic Acid 1 Mg Tab PO DAILY JOHN Sodium Chloride 1,000 mls @ 75 mls/hr 08/22/23 19:30 08/22/23 19:35 Saline 0.9% IV 75 mls/hr .[id number] JOHN Administration Lorazepam 0.5 mg 08/22/23 18:38 Lorazepam 0.5 Mg Tab PO Q4HR PRN [place] 4 To 5 Lorazepam 2 mg 08/22/23 18:38 Lorazepam 1 Mg Tab PO Q3HR PRN [place] 8 To 9 Lorazepam 2 mg 08/22/23 18:38 Lorazepam 1 Mg Tab PO Q2HR PRN [place] 10 or greater Lorazepam 1 mg 08/22/23 18:38 Lorazepam 1 Mg Tab PO Q4HR PRN [place] 6 To 7 Lorazepam 2 mg 08/22/23 18:38 Lorazepam 2 Mg/Ml Inj IV 08/24/23 18:38 Q10M PRN CIWA 16 or higher Lorazepam 1 mg 08/22/23 18:38 Lorazepam 2 Mg/Ml Inj IV Q2HR PRN CIWA 8 or 9 Lorazepam 1 mg 08/22/23 18:38 Lorazepam 2 Mg/Ml Inj IV Q1HR PRN CIWA 10 to 15 Morphine Sulfate 4 mg 08/22/23 19:25 08/23/23 02:18 Morphine Sulfate 4 Mg/Ml Syringe IV 4 mg Q4HR PRN Administration Severe Pain (Scale 7 to 10) Multivitamins 1 each 08/23/23 09:00 Multivitamins, Thera 1 Each Tab PO DAILY JOHN Naloxone HCl 0.2 mg 08/22/23 19:25 Naloxone 0.4 Mg/Ml 1 Ml Vial IV Q2M PRN Opioid Reversal Ondansetron HCl 4 mg 08/22/23 19:25 Ondansetron 4 Mg/2 Ml Vial IVP Q8HR PRN Nausea And Vomiting Intake and Output 08/22/23 08/23/23 08/23/23 22:59 06:59 14:59 Other: # Voids 1 Weight 58.967 kg 08/22/23 18:07 08/22/23 18:07
[2023-08-23] MEDS: BENZONATATE 100 MG CAP PO SCH (12:50)
[2023-08-23] MEDS: AZITHROMYCIN 500 MG TAB PO SCH (12:50)
[2023-08-23] MEDS: NICOTINE 21MG/24HR PATCH TRANSDERM SCH (12:54)
--- NOTE | 2023-08-23 13:09 | P.HPIM ---
History of Present Illness H&P Date: 08/23/23 This is a 53-year-old female with medical history significant for hypertension, anxiety, daily alcohol use and daily smoker. Patient comes in to the hospital with complaints of difficulty breathing endorsing pain with taking a deep breath as well as cough. Patient also reports fever and chills. Chest x-ray shows no acute cardiopulmonary process. EKG shows sinus tachycardia heart rate of [address] or T wave changes. D-dimer was normal, Chest CT angiography was completed which reveals no pulmonary embolism there is emphysematous changes there is also scattered small foci consolidative opacities in both lower lobes posteriorly and in the left upper lobe bilaterally with bilateral hilar adenopathy. This does suggest an acute inflammatory process however neoplasm is not entirely excluded. Was admitted to the hospital with a consult placed to cardiology services for the chest discomfort although appears more respiratory in nature, patient is being hydrated with normal saline and has been started on IV Ativan CIWA protocol. Patient does report drinking 3 to 4 glasses of wine per day and has been a daily pack per day smoker. She has never been diagnosed with COPD and has not seen a bindery supervisor in the past. She was evaluated at an [facility] for similar symptoms given steroids, antibiotics and was told to come to the ER if symptoms worsened. Patient was not improving. She will be started on scheduled updrafts and oral azithromycin. We will consult pulmonary. REVIEW OF SYSTEMS: CONSTITUTIONAL: No fever, no malaise, no fatigue. HEENT: No recent visual problems or hearing problems. Denied any sore throat. CARDIOVASCULAR: No chest pain, orthopnea, PND, no palpitations, no syncope. PULMONARY: Reports shortness of breath, Reports cough, no hemoptysis. GASTROINTESTINAL: No diarrhea, no nausea, no vomiting, no abdominal pain. NEUROLOGICAL: No headaches, no weakness, no numbness. HEMATOLOGICAL: Denies any bleeding or petechiae. GENITOURINARY: Denies any burning micturition, frequency, or urgency. MUSCULOSKELETAL/RHEUMATOLOGICAL: Denies any joint pain, swelling, or any muscle pain. ENDOCRINE: Denies any polyuria or polydipsia. The rest of the 14-point review of systems is negative. PHYSICAL EXAMINATION: GENERAL: The patient is alert and oriented x3, not in any acute distress. Well developed, well nourished. HEENT: Pupils are round and equally reacting to light. EOMI. No scleral icterus. No conjunctival pallor. Normocephalic, atraumatic. No pharyngeal erythema. No thyromegaly. CARDIOVASCULAR: S1 and S2 present. No murmurs, rubs, or gallops. PULMONARY: Diminished ABDOMEN: Soft, nontender, nondistended, normoactive bowel sounds. No palpable organomegaly. MUSCULOSKELETAL: No joint swelling or deformity. EXTREMITIES: No cyanosis, clubbing, or pedal edema. NEUROLOGICAL: Gross neurological examination did not reveal any focal deficits. SKIN: No rashes. Assessment and plan Shortness of breath likely due to underlying COPD with acute exacerbation and tracheobronchitis Rule out an acute coronary syndrome because of atypical chest pain cardiology was consulted and felt this was non cardiac in nature and have signed off. Abnormal CTA findings of small foci consolidative opacities History of anxiety resumed on lexapro Hypertension resumed on Toprol XL Daily alcohol use started on IV ativan ciwa protocol Daily smoker patient is counseled on smoking cessation and offered a nicotine patch GI prophylaxis DVT prophylaxis Full Code The impression and plan of care has been dictated by Oralia Bustos, Nurse Practitioner as directed. Dr. Ignacia MD I have performed a history and physical examination and medical decision making of this patient, discussed the same with the dictator, and agree with the dictators assessment and plan as written, documented as a scribe. Based on total visit time, I have performed more than 50% of this visit. Past Medical History Past Medical History: No Reported History, Hypertension Additional Past Medical History / Comment(s): chronic diarrhea History of Any Multi-Drug Resistant Organisms: None Reported Past Surgical History: Hysterectomy Additional Past Surgical History / Comment(s): laparoscopic ovary removed Past Anesthesia/Blood Transfusion Reactions: Motion Sickness, Postoperative Nausea & Vomiting (PONV) Past Psychological History: Anxiety Smoking Status: Current every day smoker Past Alcohol Use History: Daily Additional Past Alcohol Use History / Comment(s): smoker 30 years 1/2ppd Past Drug Use History: None Reported - Past Family History Mother Family Medical History: Pulmonary Embolus Medications and Allergies Home Medications Medication Instructions Recorded Confirmed Type Escitalopram [Lexapro] 20 mg PO HS 12/21/18 08/22/23 History Metoprolol Succinate (ER) [Toprol 25 mg PO DAILY 08/22/23 08/22/23 History Xl] Allergies Allergy/AdvReac Type Severity Reaction Status Date / Time Sulfa (Sulfonamide Allergy Rash/Hives Verified 08/22/23 17:56 Antibiotics) Physical Exam Vitals: Vital Signs Temp Pulse Pulse Resp BP BP Pulse Ox 08/23/23 07:00 98.3 F 94 14 145/73 92 L 08/23/23 00:33 98.7 F 81 16 140/68 95 08/22/23 23:20 97.8 F 83 20 128/70 95 08/22/23 20:16 172/83 08/22/23 19:58 97 08/22/23 19:48 93 08/22/23 19:22 99 18 177/90 94 L 08/22/23 15:36 99 F 114 H 18 205/96 96 Intake and Output 08/22/23 08/23/23 08/23/23 22:59 06:59 14:59 Other: # Voids 1 Weight 58.967 kg Results CBC & Chem 7: 08/23/23 04:31 08/23/23 04:31 Labs: Abnormal Lab Results - Last 24 Hours (Table) 08/22/23 08/22/23 08/22/23 Range/Units 18:07 18:07 18:07 RBC (4.10-5.20) X 10*6/uL Hct (37.2-46.3) % MCV 101.7 H (80.0-100.0) fL MCH (27.0-32.0) pg Eosinophils # (0.04-0.35) X 10*3/uL PT 9.8 L (10.0-12.5) sec Anion Gap (4.00-12.00) mmol/L BUN/Creatinine Ratio (12.00-20.00) Ratio AST 49 H (14-36) U/L ALT 46 H (4-34) U/L Total Protein (6.2-8.2) g/dL 08/23/23 08/23/23 Range/Units 04:31 04:31 RBC 3.53 L (4.10-5.20) X 10*6/uL Hct 35.8 L (37.2-46.3) % MCV 101.4 H (80.0-100.0) fL MCH 34.0 H (27.0-32.0) pg Eosinophils # 0.03 L (0.04-0.35) X 10*3/uL PT (10.0-12.5) sec Anion Gap 12.50 H (4.00-12.00) mmol/L BUN/Creatinine Ratio 20.17 H (12.00-20.00) Ratio AST (14-36) U/L ALT (4-34) U/L Total Protein 6.1 L (6.2-8.2) g/dL Assessment and Plan Time with Patient: Less than 30
--- NOTE | 2023-08-23 14:54 | P.CNPUL ---
History of Present Illness Consult date: 08/23/23 Reason for consult: chest pain History of present illness: This is a 53-year-old female patient is being seen in consultation for chest pain. The patient came into the emergency department having difficulty breathing and pain across her chest with deep breathing and coughing as well. She reports some chills and fever. Based on that, she came into the hospital where the initial blood work showed no significant leukocytosis with a white gabriela l count of 7.7 hemoglobin of 14. Normal coagulation profile. D-dimer was low at 0.4. Electrolytes were essentially within normal limits. Troponins were negative. Liver function test were normal. Lipase was normal. proBNP level was 126. UA was negative. Chest x-ray was not showing any acute abnormalities. Based on that, the patient was given a CT angiogram of the chest and the patient was found to have some bilateral hilar lymphadenopathy largest in the right hilum measuring 2.4 cm in size in the left hilum measuring 1.5 cm in size. There is background emphysematous changes bilaterally and small areas of subpleural pulmonary consolidations in the lower lobes suggestive of underlying pneumonia. The patient currently is on Zithromax. She is on Symbicort as maintenance and DuoNeb nebulized treatments [id number]. She has history of excessive alcohol consumption and daily alcohol use. She is also a smoker. She is hypertension and has chronic anxiety. The patient was also seen by cardiology. Her chest pain was labeled as noncardiac. She was started on metoprolol 25 mg p.o. twice a day. Review of Systems Constitutional: Reports as per HPI Eyes: denies as per HPI, denies blurred vision, denies bulging eye, denies decreased vision, denies diplopia, denies discharge, denies dry eye, denies irritation, denies itching, denies pain, denies photophobia, denies loss of peripheral vision, denies loss of vision, denies tunnel vision/blind spots Ears: deny: decreased hearing, ear discharge, earache, tinnitus Ears, nose, mouth and throat: Reports as per HPI Breasts: absent: as per HPI, change in shape, gynecomastia, masses, nipple discharge, pain, skin changes, swelling Cardiovascular: Reports chest pain, Reports dyspnea on exertion Respiratory: Reports cough, Reports dyspnea Gastrointestinal: Reports as per HPI Genitourinary: Reports as per HPI Menstruation: Reports as per HPI Musculoskeletal: Reports as per HPI Musculoskeletal: absent: ankle pain, ankle stiffness, ankle swelling, as per HPI, elbow pain, elbow stiffness, elbow swelling, foot pain, foot stiffness, foot swelling, hand pain, hand stiffness, hand swelling, hip pain, hip stiffnes s, hip swelling, knee pain, knee stiffness, knee swelling, shoulder pain, shoulder stiffness, shoulder swelling, wrist pain, wrist stiffness, wrist swelling Integumentary: Reports as per HPI Neurological: Reports as per HPI Psychiatric: Reports as per HPI Endocrine: Reports as per HPI Hematologic/Lymphatic: Reports as per HPI Allergic/Immunologic: Reports as per HPI Past Medical History Past Medical History: No Reported History, Hypertension Additional Past Medical History / Comment(s): chronic diarrhea History of Any Multi-Drug Resistant Organisms: None Reported Past Surgical History: Hysterectomy Additional Past Surgical History / Comment(s): laparoscopic ovary removed Past Anesthesia/Blood Transfusion Reactions: Motion Sickness, Postoperative Nausea & Vomiting (PONV) Past Psychological History: Anxiety Smoking Status: Current every day smoker Past Alcohol Use History: Daily Additional Past Alcohol Use History / Comment(s): smoker 30 years 1/2ppd Past Drug Use History: None Reported - Past Family History Mother Family Medical History: Pulmonary Embolus Medications and Allergies Home Medications Medication Instructions Recorded Confirmed Type Escitalopram [Lexapro] 20 mg PO HS 12/21/18 08/22/23 History Metoprolol Succinate (ER) [Toprol 25 mg PO DAILY 08/22/23 08/22/23 History Xl] Allergies Allergy/AdvReac Type Severity Reaction Status Date / Time Sulfa (Sulfonamide Allergy Rash/Hives Verified 08/22/23 17:56 Antibiotics) Physical Exam Vitals: Vital Signs Temp Pulse Pulse Resp BP BP Pulse Ox 08/23/23 14:32 98.3 F 96 16 127/73 98 08/23/23 12:29 90 18 08/23/23 12:22 92 18 08/23/23 09:45 90 18 08/23/23 09:35 93 16 08/23/23 07:00 98.3 F 94 14 145/73 92 L 08/23/23 00:33 98.7 F 81 16 140/68 95 08/22/23 23:20 97.8 F 83 20 128/70 95 08/22/23 20:16 172/83 06/10/24 19:58 97 08/22/23 19:48 93 08/22/23 19:22 99 18 177/90 94 L 08/22/23 15:36 99 F 114 H 18 205/96 96 Intake and Output 08/22/23 08/23/23 08/23/23 22:59 06:59 14:59 Intake Total 118 Balance 118 Intake: Oral 118 Other: # Voids 1 Weight 58.967 kg GENERAL: The patient is alert and oriented x3, not in any acute distress. Well developed, well nourished. HEENT: Pupils are round and equally reacting to light. EOMI. No scleral icterus. No conjunctival pallor. Normocephalic, atraumatic. No pharyngeal erythema. No thyromegaly. CARDIOVASCULAR: S1 and S2 present. No murmurs, rubs, or gallops. PULMONARY: Diminished ABDOMEN: Soft, nontender, nondistended, normoactive bowel sounds. No palpable organomegaly. MUSCULOSKELETAL: No joint swelling or deformity. EXTREMITIES: No cyanosis, clubbing, or pedal edema. NEUROLOGICAL: Gross neurological examination did not reveal any focal deficits. SKIN: No rashes. Results - Laboratory Findings CBC and BMP: 08/23/23 04:31 08/23/23 04:31 ABG WBC 5.10 X 10*3/uL (4.50-10.00) 08/23/23 04:31 RBC 3.53 X 10*6/uL (4.10-5.20) L 08/23/23 04:31 Hgb 12.0 g/dL (12.0-15.0) 08/23/23 04:31 Hct 35.8 % (37.2-46.3) L 08/23/23 04:31 MCV 101.4 FL (80.0-97.0) H 08/23/23 04:31 MCH 34.0 pg (27.0-32.0) H 08/23/23 04:31 MCHC 33.5 g/dL (32.0-37.0) 08/23/23 04:31 RDW 13.8 % (11.5-14.5) 08/23/23 04:31 Plt Count 184 X 10*3/uL (140-440) 08/23/23 04:31 MPV 9.8 FL (9.5-12.2) 08/23/23 04:31 Immature Gran % (Auto) 0.20 % 08/23/23 04:31 Absolute Nucleated RBC 0 % 08/23/23 04:31 Neutrophils % 61.1 % 08/23/23 04:31 Lymphocytes % 26.3 % 08/23/23 04:31 Monocytes % 11.4 % 08/23/23 04:31 Eosinophils % 0.6 % 08/23/23 04:31 Basophils % 0.4 % 08/23/23 04:31 Immature Gran # 0.01 X 10*3/uL (0.00-0.04) 08/23/23 04:31 Neutrophils # 3.12 X 10*3/uL (1.80-7.70) 08/23/23 04:31 Lymphocytes # 1.34 X 10*3/uL (0.90-5.00) 08/23/23 04:31 Monocytes # 0.58 X 10*3/uL (0.20-1.00) 08/23/23 04:31 Eosinophils # 0.03 X 10*3/uL (0.04-0.35) L 08/23/23 04:31 Basophils # 0.02 X 10*3/uL (0.00-0.10) 08/23/23 04:31 NRBC/100 WBC Diff 0 X 10*3/uL (0.00-0.01) 08/23/23 04:31 Macrocytosis Slight 08/22/23 18:07 PT 9.8 sec (10.0-12.5) L 08/22/23 18:07 INR 0.9 (<1.2) 08/22/23 18:07 APTT 23.0 sec (22.0-30.0) 08/22/23 18:07 D-Dimer 0.42 mg/L FEU (<0.60) 08/22/23 19:24 Sodium 141 mmol/L (135-145) 08/23/23 04:31 Potassium 3.9 mmol/L (3.5-5.5) 08/23/23 04:31 Chloride 103 mmol/L (96-109) 08/23/23 04:31 Carbon Dioxide 25.5 mmol/L (21.6-31.8) 08/23/23 04:31 Anion Gap 12.50 mmol/L (4.00-12.00) H 08/23/23 04:31 BUN 12.1 mg/dL (9.0-27.0) 08/23/23 04:31 Creatinine 0.6 mg/dL (0.6-1.5) 08/23/23 04:31 Est GFR (CKD-EPI) 107 (>=60) 08/23/23 04:31 Est GFR (CKD-EPI)AfAm >90 (>60 ml/min/1.73 sqM) 08/22/23 18:07 Est GFR (CKD-EPI)NonAf >90 (>60 ml/min/1.73 sqM) 08/22/23 18:07 BUN/Creatinine Ratio 20.17 Ratio (12.00-20.00) H 08/23/23 04:31 Glucose 89 mg/dL (70-110) 08/23/23 04:31 Calcium 8.8 mg/dL (8.7-10.3) 08/23/23 04:31 Phosphorus 3.5 mg/dL (2.4-5.1) 08/23/23 04:31 Magnesium 1.9 mg/dL (1.5-2.4) 08/23/23 04:31 Total Bilirubin 0.5 mg/dL (0.3-1.2) 08/23/23 04:31 AST 29 U/L (13-35) 08/23/23 04:31 ALT 36 U/L (8-44) 08/23/23 04:31 Alkaline Phosphatase 70 U/L (41-126) 08/23/23 04:31 Troponin I <0.012 ng/mL (0.000-0.034) 08/22/23 23:49 NT-Pro-B Natriuret Pep 126 pg/mL 08/22/23 19:24 Total Protein 6.1 g/dL (6.2-8.2) L 08/23/23 04:31 Albumin 3.9 g/dL (3.8-4.9) 08/23/23 04:31 Globulin 2.2 g/dL (1.6-3.3) 08/23/23 04:31 Albumin/Globulin Ratio 1.77 Ratio (1.60-3.17) 08/23/23 04:31 Lipase 148 U/L (23-300) 08/22/23 19:24 PT/INR, D-dimer PT 9.8 sec (10.0-12.5) L 08/22/23 18:07 INR 0.9 (<1.2) 08/22/23 18:07 D-Dimer 0.42 mg/L FEU (<0.60) 08/22/23 19:24 Abnormal lab findings: Abnormal Labs 08/22/23 08/22/23 08/22/23 18:07 18:07 18:07 RBC Hct MCV 101.7 H MCH Eosinophils # PT 9.8 L Anion Gap BUN/Creatinine Ratio AST 49 H ALT 46 H Total Protein 08/23/23 08/23/23 04:31 04:31 RBC 3.53 L Hct 35.8 L MCV 101.4 H MCH 34.0 H Eosinophils # 0.03 L PT Anion Gap 12.50 H BUN/Creatinine Ratio 20.17 H AST ALT Total Protein 6.1 L - Diagnostic Findings Chest x-ray: image reviewed Assessment and Plan Plan: Acute bilateral pleuritic chest pain, most consistent with lower lobe subpleural Mediastinal lymphadenopathy, likely reactive, need to be followed up on outpatient basis COPD with upper lobe predominance Chronic smoker Alcoholism Hypertension Plan Add IV Rocephin and continue Zithromax Check procalcitonin level [place] for pain control, 5 mg every 4-6 hours on a as needed basis Oxygenation is stable Cardiology input is appreciated CT scan of the chest was noted The patient will need follow-up CAT scan in 6 months time to monitor the mediastinal lymphadenopathy Smoking cessation counseling watch for any signs of delirium tremens Will continue to follow
[2023-08-23] MEDS: HYDROcodone/APAP 5-325MG 1 EACH TAB PO PRN (15:08)
[2023-08-23] MEDS: IPRATROPIUM-ALBUTEROL 3 ML NEB INHALATION SCH (16:27)
[2023-08-23] MEDS: SYMBICORT 160-4.5 MCG INHALER INHALATION SCH (20:35)
[2023-08-23] MEDS: ESCITALOPRAM 20 MG TAB PO SCH (20:57)
[2023-08-23] MEDS: HEPARIN SODIUM,PORCINE 5,000 UNIT/ML 1 ML VIAL SQ SCH (20:58)
[2023-08-23] MEDS ORDERED: ATORVASTATIN 40 MG TAB PO SCH (21:00)
[2023-08-24] MEDS: KETOROLAC 15 MG/ML 1 ML VIAL IVP PRN (11:36)
--- NOTE | 2023-08-24 14:35 | P.PN ---
Subjective Progress Note Date: 08/24/23 This is a 53-year-old female with medical history significant for hypertension, anxiety, daily alcohol use and daily smoker. Patient comes in to the hospital with complaints of difficulty breathing endorsing pain with taking a deep breath as well as cough. Patient also reports fever and chills. Chest x-ray shows no acute cardiopulmonary process. EKG shows sinus tachycardia heart rate of [address] or T wave changes. D-dimer was normal, Chest CT angiography was completed which reveals no pulmonary embolism there is emphysematous changes there is also scattered small foci consolidative opacities in both lower lobes posteriorly and in the left upper lobe bilaterally with bilateral hilar adenopathy. This does suggest an acute inflammatory process however neoplasm is not entirely excluded. Was admitted to the hospital with a consult placed to cardiology services for the chest discomfort although appears more respiratory in nature, patient is being hydrated with normal saline and has been started on IV Ativan CIWA protocol. Patient does report drinking 3 to 4 glasses of wine per day and has been a daily pack per day smoker. She has never been diagnosed with COPD and has not seen a assembly room supervisor in the past. She was evaluated at an [facility] for similar symptoms given steroids, antibiotics and was told to come to the ER if symptoms worsened. Patient was not improving. She will be started on scheduled updrafts and oral azithromycin. We will consult pulmonary. 08/24/2023 Patient evaluated in follow up today. Patient continues to report significant chest discomfort when she is deep breathing and coughing. She is on a combination of IV toradol and norco tablets. Continues on supportive care and symbicort and albuterol inhalers. Pulmonary recommending IV ceftriaxone in addition to oral azithromycin. Procalcitonin level 0.10. Hemodynamically she is stable. REVIEW OF SYSTEMS: CONSTITUTIONAL: No fever, no malaise, no fatigue. HEENT: No recent visual problems or hearing problems. Denied any sore throat. CARDIOVASCULAR: No chest pain, orthopnea, PND, no palpitations, no syncope. PULMONARY: Reports shortness of breath, Reports cough, no hemoptysis. GASTROINTESTINAL: No diarrhea, no nausea, no vomiting, no abdominal pain. NEUROLOGICAL: No headaches, no weakness, no numbness. PHYSICAL EXAMINATION: GENERAL: The patient is alert and oriented x3, not in any acute distress. Well developed, well nourished. HEENT: Pupils are round and equally reacting to light. EOMI. No scleral icterus. No conjunctival pallor. Normocephalic, atraumatic. No pharyngeal erythema. No thyromegaly. CARDIOVASCULAR: S1 and S2 present. No murmurs, rubs, or gallops. PULMONARY: Diminished ABDOMEN: Soft, nontender, nondistended, normoactive bowel sounds. No palpable organomegaly. MUSCULOSKELETAL: No joint swelling or deformity. EXTREMITIES: No cyanosis, clubbing, or pedal edema. NEUROLOGICAL: Gross neurological examination did not reveal any focal deficits. SKIN: No rashes. Assessment and plan Shortness of breath likely due to underlying COPD with acute exacerbation and tracheobronchitis. Pulmonary recommending IV ceftriaxone in addition to oral azithromycin. Pleuritic chest pain secondary to above Rule out an acute coronary syndrome because of atypical chest pain cardiology was consulted and felt this was non cardiac in nature and have signed off. Abnormal CTA findings of mediastinal lymphadenopathy follow up with pulmonary outpatient and repeat CT in 6 months History of anxiety resumed on lexapro Hypertension resumed on Toprol XL Daily alcohol use started on IV ativan ciwa protocol and monitor for alcohol withdrawal. Daily smoker patient is counseled on smoking cessation and offered a nicotine patch GI prophylaxis DVT prophylaxis Full Code Patient is still having significant chest discomfort with deep breathing and cough. We will continue to monitor the patient overnight and continue with oral norco and IV toradol. Pulmonary following. DC home in the next 24 hours. Continue supportive care. The impression and plan of care has been dictated by Oralia Bustos Nurse Practitioner as directed. Dr. Ignacia MD I have performed a history and physical examination and medical decision making of this patient, discussed the same with the dictator, and agree with the dictators assessment and plan as written, documented as a scribe. Based on total visit time, I have performed more than 50% of this visit. Objective - Vital Signs Vital signs: Vital Signs Temp 98.9 F 08/24/23 07:00 Pulse 80 08/24/23 12:20 Resp 15 08/24/23 07:00 BP 171/79 08/24/23 07:00 Pulse Ox 95 08/24/23 07:00 FiO2 Intake & Output 08/23/23 08/24/23 08/24/23 18:59 06:59 18:59 Intake Total 118 200 Balance 118 200 Intake: Oral 118 200 Other: # Voids 2 1 3 - Labs CBC & Chem 7: 08/23/23 04:31 08/23/23 04:31 Labs: Abnormal Lab Results - Last 24 Hours (Table) 08/23/23 Range/Units 04:31 Procalcitonin 0.10 H (0.02-0.09) ng/mL Assessment and Plan Time with Patient: Less than 30
--- NOTE | 2023-08-24 17:32 | P.PN ---
Subjective Progress Note Date: 08/24/23 This is a 53-year-old female patient is being seen in consultation for chest pain. The patient came into the emergency department having difficulty breathing and pain across her chest with deep breathing and coughing as well. She reports some chills and fever. Based on that, she came into the hospital where the initial blood work showed no significant leukocytosis with a white cell count of 7.7 hemoglobin of 14. Normal coagulation profile. D-dimer was low at 0.4. Electrolytes were essentially within normal limits. Troponins were negative. Liver function test were normal. Lipase was normal. proBNP level was 126. UA was negative. Chest x-ray was not showing any acute abnormalities. Based on that, the patient was given a CT angiogram of the chest and the patient was found to have some bilateral hilar lymphadenopathy largest in the right hilum measuring 2.4 cm in size in the left hilum measuring 1.5 cm in size. There is background emphysematous changes bilaterally and small areas of subpleural pulmonary consolidations in the lower lobes suggestive of underlying pneumonia. The patient currently is on Zithromax. She is on Symbicort as maintenance and DuoNeb nebulized treatments [id number]. She has history of excessive alcohol consumption and daily alcohol use. She is also a smoker. She is hypertension and has chronic anxiety. The patient was also seen by cardiology. Her chest pain was labeled as noncardiac. She was started on metoprolol 25 mg p.o. twice a day. On 08/24/2023, the patient is feeling better. Pain is subsided. No significant shortness of breath. Remains on a combination of Rocephin and Zithromax. White cell count is 5.1. Electrolytes are all within normal limits. Procalcitonin level is at 0.1. She remains on room air oxygen. Objective - Vital Signs Vital signs: Vital Signs Temp 98.9 F 08/24/23 07:00 Pulse 78 08/24/23 09:42 Resp 15 08/24/23 07:00 BP 171/79 08/24/23 07:00 Pulse Ox 95 08/24/23 07:00 FiO2 Intake & Output 08/23/23 08/24/23 08/24/23 18:59 06:59 18:59 Intake Total 118 200 Balance 118 200 Intake: Oral 118 200 Other: # Voids 2 1 - Exam GENERAL: The patient is alert and oriented x3, not in any acute distress. Well developed, well nourished. HEENT: Pupils are round and equally reacting to light. EOMI. No scleral icterus. No conjunctival pallor. Normocephalic, atraumatic. No pharyngeal erythema. No thyromegaly. CARDIOVASCULAR: S1 and S2 present. No murmurs, rubs, or gallops. PULMONARY: Diminished ABDOMEN: Soft, nontender, nondistended, normoactive bowel sounds. No palpable organomegaly. MUSCULOSKELETAL: No joint swelling or deformity. EXTREMITIES: No cyanosis, clubbing, or pedal edema. NEUROLOGICAL: Gross neurological examination did not reveal any focal deficits. SKIN: No rashes. - Labs CBC & Chem 7: 08/23/23 04:31 08/23/23 04:31 Labs: Abnormal Lab Results - Last 24 Hours (Table) 08/23/23 Range/Units 04:31 Procalcitonin 0.10 H (0.02-0.09) ng/mL Assessment and Plan Plan: Acute bilateral pleuritic chest pain, most consistent with lower lobe subpleural, improved compared to yesterday Mediastinal lymphadenopathy, likely reactive, need to be followed up on outpatient basis COPD with upper lobe predominance Chronic smoker Alcoholism Hypertension Plan Continue Rocephin and continue Zithromax Check procalcitonin level was mildly elevated [place] for pain control, 5 mg every 4-6 hours on a as needed basis Oxygenation is stable Cardiology input is appreciated CT scan of the chest was noted The patient will need follow-up CAT scan in 6 months time to monitor the mediastinal lymphadenopathy Smoking cessation counseling No signs of any delirium tremens.
[2023-08-24] MEDS: LORazepam 1 MG TAB PO PRN (21:29)
[2023-08-25] MEDS: LORazepam 1 MG TAB PO PRN (10:00)
[2023-08-25] MEDS: lisinopriL 10 MG TAB PO SCH (21:27)
--- NOTE | 2023-08-26 00:02 | P.PN ---
Subjective Progress Note Date: 08/25/23 This is a 53-year-old female patient is being seen in consultation for chest pain. The patient came into the emergency department having difficulty breathing and pain across her chest with deep breathing and coughing as well. She reports some chills and fever. Based on that, she came into the hospital where the initial blood work showed no significant leukocytosis with a white cell count of 7.7 hemoglobin of 14. Normal coagulation profile. D-dimer was low at 0.4. Electrolytes were essentially within normal limits. Troponins were negative. Liver function test were normal. Lipase was normal. proBNP level was 126. UA was negative. Chest x-ray was not showing any acute abnormalities. Based on that, the patient was given a CT angiogram of the chest and the patient was found to have some bilateral hilar lymphadenopathy largest in the right hilum measuring 2.4 cm in size in the left hilum measuring 1.5 cm in size. There is background emphysematous changes bilaterally and small areas of subpleural pulmonary consolidations in the lower lobes suggestive of underlying pneumonia. The patient currently is on Zithromax. She is on Symbicort as maintenance and DuoNeb nebulized treatments [id number]. She has history of excessive alcohol consumption and daily alcohol use. She is also a smoker. She is hypertension and has chronic anxiety. The patient was also seen by cardiology. Her chest pain was labeled as noncardiac. She was started on metoprolol 25 mg p.o. twice a day. On 08/24/2023, the patient is feeling better. Pain is subsided. No significant shortness of breath. Remains on a combination of Rocephin and Zithromax. White cell count is 5.1. Electrolytes are all within normal limits. Procalcitonin level is at 0.1. She remains on room air oxygen. 08/26/2023, the patient is being seen for a follow-up. Still having chest pain when taking a deep breath. Remains on Rocephin and Zithromax. Procalcitonin level is low. Room air oxygen is in the order of 98%. Patient is receiving adequate pain control and she is currently on [place] for pain control. Rest of the medications remain unchanged. Afebrile, hemodynamically stable. Objective - Vital Signs Vital signs: Vital Signs Temp 98.2 F 08/25/23 19:11 Pulse 100 08/25/23 22:00 Resp 15 08/25/23 19:11 BP 162/79 08/25/23 22:00 Pulse Ox 98 08/25/23 19:11 FiO2 Intake & Output 08/25/23 08/25/23 08/26/23 06:59 18:59 06:59 Intake Total 356 Balance 356 Intake: Oral 356 Other: Voiding Method Toilet # Voids 2 - Exam GENERAL: The patient is alert and oriented x3, not in any acute distress. Well developed, well nourished. HEENT: Pupils are round and equally reacting to light. EOMI. No scleral icterus. No conjunctival pallor. Normocephalic, atraumatic. No pharyngeal erythema. No thyromegaly. CARDIOVASCULAR: S1 and S2 present. No murmurs, rubs, or gallops. PULMONARY: Diminished ABDOMEN: Soft, nontender, nondistended, normoactive bowel sounds. No palpable organomegaly. MUSCULOSKELETAL: No joint swelling or deformity. EXTREMITIES: No cyanosis, clubbing, or pedal edema. NEUROLOGICAL: Gross neurological examination did not reveal any focal deficits. SKIN: No rashes. - Labs CBC & Chem 7: 08/23/23 04:31 08/23/23 04:31 Assessment and Plan Plan: Acute bilateral pleuritic chest pain, most consistent with lower lobe subpleural, improved compared to yesterday Mediastinal lymphadenopathy, likely reactive, need to be followed up on ou tpatient basis COPD with upper lobe predominance Chronic smoker Alcoholism Hypertension Plan Continue Rocephin and continue Zithromax Check procalcitonin level was mildly elevated [place] for pain control, 5 mg every 4-6 hours on a as needed basis Oxygenation is stable Cardiology input is appreciated CT scan of the chest was noted The patient will need follow-up CAT scan in 6 months time to monitor the mediastinal lymphadenopathy Obtain follow-up chest x-ray in the morning Smoking cessation counseling No signs of any delirium tremens.
[2023-08-26 09:17] VITALS: TEMP 97.9
--- NOTE | 2023-08-26 09:20 | XR ---
EXAMINATION TYPE: XR chest 2V DATE OF EXAM: 08/26/2023 COMPARISON: 08/21/2021 HISTORY: Shortness of breath TECHNIQUE: Frontal and lateral views of the chest are obtained. FINDINGS: Scattered senescent parenchymal changes noted. Hyperinflation compatible with COPD. No evidence for infiltrate. No evidence for atelectasis. Heart size is stable. Mediastinal structures are stable and grossly unremarkable. No evidence for hilar prominence. Degenerative changes dorsal spine. IMPRESSION: 1. No evidence for acute pulmonary disease.
[2023-08-26 13:51] VITALS: BP 158/89; PULSE 83; RESP 17
--- NOTE | 2023-08-27 00:20 | P.PN ---
Subjective Progress Note Date: 08/26/23 This is a 53-year-old female patient is being seen in consultation for chest pain. The patient came into the emergency department having difficulty breathing and pain across her chest with deep breathing and coughing as well. She reports some chills and fever. Based on that, she came into the hospital where the initial blood work showed no significant leukocytosis with a white cell count of 7.7 hemoglobin of 14. Normal coagulation profile. D-dimer was low at 0.4. Electrolytes were essentially within normal limits. Troponins were negative. Liver function test were normal. Lipase was normal. proBNP level was 126. UA was negative. Chest x-ray was not showing any acute abnormalities. Based on that, the patient was given a CT angiogram of the chest and the patient was found to have some bilateral hilar lymphadenopathy largest in the right hilum measuring 2.4 cm in size in the left hilum measuring 1.5 cm in size. There is background emphysematous changes bilaterally and small areas of subpleural pulmonary consolidations in the lower lobes suggestive of underlying pneumonia. The patient currently is on Zithromax. She is on Symbicort as maintenance and DuoNeb nebulized treatments [id number]. She has history of excessive alcohol consumption and daily alcohol use. She is also a smoker. She is hypertension and has chronic anxiety. The patient was also seen by cardiology. Her chest pain was labeled as noncardiac. She was started on metoprolol 25 mg p.o. twice a day. On 08/24/2023, the patient is feeling better. Pain is subsided. No significant shortness of breath. Remains on a combination of Rocephin and Zithromax. White cell count is 5.1. Electrolytes are all within normal limits. Procalcitonin level is at 0.1. She remains on room air oxygen. 08/25/2023, the patient is being seen for a follow-up. Still having chest pain when taking a deep breath. Remains on Rocephin and Zithromax. Procalcitonin level is low. Room air oxygen is in the order of 98%. Patient is receiving adequate pain control and she is currently on [place] for pain control. Rest of the medications remain unchanged. Afebrile, hemodynamically stable. On 08/26/2023, the patient is complaining of any chest pain. No pleurisy. No hemoptysis and the patient remains on room air oxygen. Afebrile. Hemodynamically stable. The white cell count is at 5.1 with a hemoglobin of 12. The patient is ambulating. No nausea. No emesis. No chest pain. Will likely get discharged home today. She has a nicotine patch and she is going to be given Nicotrol at the time of discharge. Objective - Vital Signs Vital signs: Vital Signs Temp 97.9 F 08/26/23 08:00 Pulse 83 08/26/23 13:50 Resp 17 08/26/23 13:50 BP 158/89 08/26/23 13:50 Pulse Ox 98 08/26/23 13:50 FiO2 Intake & Output 08/26/23 08/26/23 08/27/23 06:59 18:59 06:59 Intake Total 360 Balance 360 Intake: Oral 360 Other: # Voids 2 - Exam GENERAL: The patient is alert and oriented x3, not in any acute distress. Well developed, well nourished. HEENT: Pupils are round and equally reacting to light. EOMI. No scleral icterus. No conjunctival pallor. Normocephalic, atraumatic. No pharyngeal erythema. No thyromegaly. CARDIOVASCULAR: S1 and S2 present. No murmurs, rubs, or gallops. PULMONARY: Diminished ABDOMEN: Soft, nontender, nondistended, normoactive bowel sounds. No palpable organomegaly. MUSCULOSKELETAL: No joint swelling or deformity. EXTREMITIES: No cyanosis, clubbing, or pedal edema. NEUROLOGICAL: Gross neurological examination did not reveal any focal deficits. SKIN: No rashes. - Labs CBC & Chem 7: 08/23/23 04:31 08/23/23 04:31 Assessment and Plan Plan: Acute bilateral pleuritic chest pain, most consistent with lower lobe subpleural, recovered Mediastinal lymphadenopathy, likely reactive, need to be followed up on outpatient basis COPD with upper lobe predominance Chronic smoker Alcoholism Hypertension Plan Clinically improved and the patient will be discharged home today No need for oxygen supplementation Oxygenation is stable Cardiology input is appreciated Nicotine patches Symbicort as maintenance Albuterol as needed CT scan of the chest was noted The patient will need follow-up CAT scan in 6 months time to monitor the media stinal lymphadenopathy Obtain follow-up chest x-ray in the morning Smoking cessation counseling No signs of any delirium tremens Will need to follow-up on outpatient basis
--- NOTE | 2023-08-27 16:22 | P.PN ---
Subjective Progress Note Date: 08/25/23 This is a 53-year-old female with medical history significant for hypertension, anxiety, daily alcohol use and daily smoker. Patient comes in to the hospital with complaints of difficulty breathing endorsing pain with taking a deep breath as well as cough. Patient also reports fever and chills. Chest x-ray shows no acute cardiopulmonary process. EKG shows sinus tachycardia heart rate of [address] or T wave changes. D-dimer was normal, Chest CT angiography was completed which reveals no pulmonary embolism there is emphysematous changes there is also scattered small foci consolidative opacities in both lower lobes posteriorly and in the left upper lobe bilaterally with bilateral hilar adenopathy. This does suggest an acute inflammatory process however neoplasm is not entirely excluded. Was admitted to the hospital with a consult placed to cardiology services for the chest discomfort although appears more respiratory in nature, patient is being hydrated with normal saline and has been started on IV Ativan CIWA protocol. Patient does report drinking 3 to 4 glasses of wine per day and has been a daily pack per day smoker. 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 She was evaluated at an [facility] for similar symptoms given steroids, antibiotics and was told to come to the ER if symptoms worsened. Patient was not improving. She will be started on scheduled updrafts and oral azithromycin. We will consult pulmonary. 08/24/2023 Patient evaluated in follow up today. Patient continues to report significant chest discomfort when she is deep breathing and coughing. She is on a combination of IV toradol and norco tablets. Continues on supportive care and symbicort and albuterol inhalers. Pulmonary recommending IV ceftriaxone in addition to oral azithromycin. Procalcitonin level 0.10. Hemodynamically she is stable. 08/25/2023 Patient evaluated in follow up. Continues to report significant pain with breathing. States her cough is more congested however she has been able to cough up some sputum. Plan for repeat chest x-ray in the morning. Pulmonary is following this patient closely. REVIEW OF SYSTEMS: CONSTITUTIONAL: No fever, no malaise, no fatigue. HEENT: No recent visual problems or hearing problems. Denied any sore throat. CARDIOVASCULAR: No chest pain, orthopnea, PND, no palpitations, no syncope. PULMONARY: Reports shortness of breath, Reports cough, no hemoptysis. GASTROINTESTINAL: No diarrhea, no nausea, no vomiting, no abdominal pain. NEUROLOGICAL: No headaches, no weakness, no numbness. PHYSICAL EXAMINATION: GENERAL: The patient is alert and oriented x3, not in any acute distress. Well developed, well nourished. HEENT: Pupils are round and equally reacting to light. EOMI. No scleral icterus. No conjunctival pallor. Normocephalic, atraumatic. No pharyngeal erythema. No thyromegaly. CARDIOVASCULAR: S1 and S2 present. No murmurs, rubs, or gallops. PULMONARY: Diminished ABDOMEN: Soft, nontender, nondistended, normoactive bowel sounds. No palpable organomegaly. MUSCULOSKELETAL: No joint swelling or deformity. EXTREMITIES: No cyanosis, clubbing, or pedal edema. NEUROLOGICAL: Gross neurological examination did not reveal any focal deficits. SKIN: No rashes. Assessment and plan Shortness of breath likely due to underlying COPD with acute exacerbation and tracheobronchitis. Pulmonary recommending IV ceftriaxone in addition to oral azithromycin. Pleuritic chest pain secondary to above Rule out an acute coronary syndrome because of atypical chest pain cardiology was consulted and felt this was non cardiac in nature and have signed off. Abnormal CTA findings of mediastinal lymphadenopathy follow up with pulmonary outpatient and repeat CT in 6 months History of anxiety resumed on lexapro Hypertension resumed on Toprol XL Daily alcohol use started on IV ativan ciwa protocol and monitor for alcohol withdrawal. Daily smoker patient is counseled on smoking cessation and offered a nicotine patch GI prophylaxis DVT prophylaxis Full Code Patient is still having significant chest discomfort with deep breathing and cough. We will continue to monitor the patient overnight and continue with oral norco and IV toradol. Pulmonary following. DC home in the next 24 hours. Continue supportive care. The impression and plan of care has been dictated by Oralia Bustos Nurse Practitioner as directed. Dr. Ignacia MD I have performed a history and physical examination and medical decision making of this patient, discussed the same with the dictator, and agree with the dictators assessment and plan as written, documented as a scribe. Based on total visit time, I have performed more than 50% of this visit. Objective - Vital Signs Vital signs: Vital Signs Temp 97.9 F 08/26/23 08:00 Pulse 83 08/26/23 13:50 Resp 17 08/26/23 13:50 BP 158/89 08/26/23 13:50 Pulse Ox 98 08/26/23 13:50 FiO2 Intake & Output 08/26/23 08/27/23 08/27/23 18:59 06:59 18:59 Intake Total 360 Balance 360 Intake: Oral 360 - Labs CBC & Chem 7: 08/23/23 04:31 08/23/23 04:31 Assessment and Plan Time with Patient: Less than 30
--- NOTE | 2023-08-27 16:25 | P.DS ---
Providers Date of admission: 08/24/23 14:30 Attending physician: Lenora Yadav Consults: 08/22/23 19:25 Consult Physician Routine Consulting Provider: Tata Ashford Consult Reason/Comments: cp Do you want consulting provider notified?: Yes 08/23/23 10:48 Consult Physician Routine Consulting Provider: Kirsten May Consult Reason/Comments: COPD exacerbation Do you want consulting provider notified?: Yes Primary care physician: Stated None Hospital Course: Final Diagnosis Shortness of breath likely due to underlying COPD with acute exacerbation and tracheobronchitis. Pleuritic chest pain secondary to above Rule out an acute coronary syndrome because of atypical chest pain cardiology was consulted and felt this was non cardiac in nature and have signed off. Abnormal CTA findings of mediastinal lymphadenopathy follow up with pulmonary outpatient and repeat CT in 6 months History of anxiety resumed on lexapro Hypertension resumed on Toprol XL lisinopril was added. Daily alcohol use started on IV ativan ciwa protocol and monitor for alcohol withdrawal. Daily smoker patient is counseled on smoking cessation and offered a nicotine patch Discharge Disposition Stable for discharge home. Patient has been cleared by pulmonary services and will follow-up in the office within 1 month. Patient has been discharged on Symbicort inhaler twice a day as well as albuterol inhaler as needed. Patient is counseled extensively on smoking cessation and will discharge on the beginnings of a nicotine steroid taper with 21 mg patch for the next 6 days and can follow-up with her primary care provider in the office for additional tapering. Patient will be establishing care with Dr. Cantu and has an appointment scheduled for August 29. Patient has been started on lisinopril. Hospital Course This is a 53-year-old female with medical history significant for hypertension, anxiety, daily alcohol use and daily smoker. Patient comes in to the hospital with complaints of difficulty breathing endorsing pain with taking a deep breath as well as cough. Patient also reports fever and chills. Chest x-ray shows no acute cardiopulmonary process. EKG shows sinus tachycardia heart rate of [address] or T wave changes. D-dimer was normal, Chest CT angiography was completed which reveals no pulmonary embolism there is emphysematous changes there is also scattered small foci consolidative opacities in both lower lobes posteriorly and in the left upper lobe bilaterally with bilateral hilar adenopathy. This does suggest an acute inflammatory process however neoplasm is not entirely excluded. Was admitted to the hospital with a consult placed to cardiology services for the chest discomfort although appears more respiratory in nature, patient is being hydrated with normal saline and has been started on IV Ativan CIWA protocol. Patient does report drinking 3 to 4 glasses of wine per day and has been a daily pack per day smoker. She has never been diagnosed with COPD and has not seen a engineering leader in the past. She was evaluated at an urgent care for similar symptoms given steroids, antibiotics and was told to come to the ER if symptoms worsened. Patient was not improving. She will be started on scheduled updrafts and oral azithromycin. Pulmonary evaluated the patient recommended IV ceftriaxone while inpatient. She was continued with IV toradol for pain management and her pleuritic chest pain has improved somewhat. Her lungs are clear now. Procalcitonin level 0.10. Hemodynamically she is stable. Repeat chest x-ray reveals no evidence for acute pulmonary disease. There is hyperinflation compatible with COPD. Patient's white blood cell count has remained stable at 5.10. Her electrolytes and renal function are within normal limits. She will be discharged home. Please see medication reconciliation for a list of current medications. Thank you for allowing us to participate in the care of this patient. The impression and plan of care has been dictated by Oralia Bustos, Nurse Practitioner as directed. Dr. Ignacia MD I have performed a history and physical examination and medical decision making of this patient, discussed the same with the dictator, and agree with the dictators assessment and plan as written, documented as a scribe. Based on total visit time, I have performed more than 50% of this visit. Patient Condition at Discharge: Fair Plan - Discharge Summary New Discharge Prescriptions: New Multivitamins, Thera [Multivitamin (formulary)] 1 each PO DAILY #30 tab Budesonide-Formot 160-4.5 Mcg [Symbicort 160-4.5 Mcg Inhaler] 2 puff INHALATION RT-BID #1 each HYDROcodone/APAP 5-325MG [[place] 5-325] 1 each PO Q6HR PRN #12 tab PRN Reason: Pain Nicotine 21Mg/24Hr Patch [Habitrol] 1 each TRANSDERM DAILY #6 patch Folic Acid 1 mg PO DAILY #30 tab Benzonatate [Tessalon Perles] 100 mg PO TID PRN #30 cap PRN Reason: Cough Albuterol Inhaler [Ventolin Hfa Inhaler] 1 puff INHALATION QID PRN #8 gm PRN Reason: Shortness Of Breath Or Wheezing lisinopriL [Zestril] 10 mg PO DAILY #30 tab Continue Metoprolol Succinate (ER) [Toprol XL] 25 mg PO DAILY #30 tab Escitalopram [Lexapro] 20 mg PO HS #30 tab Discharge Medication List Benzonatate [Tessalon Perles] 100 mg PO TID PRN #30 cap 08/25/23 [Rx] Budesonide-Formot 160-4.5 Mcg [Symbicort 160-4.5 Mcg Inhaler] 2 puff INHALATION RT-BID #1 each 08/25/23 [Rx] Folic Acid 1 mg PO DAILY #30 tab 08/25/23 [Rx] HYDROcodone/APAP 5-325MG [[place] 5-325] 1 each PO Q6HR PRN #12 tab 08/25/23 [Rx] Multivitamins, Thera [Multivitamin (formulary)] 1 each PO DAILY #30 tab 08/25/23 [Rx] Albuterol Inhaler [Ventolin Hfa Inhaler] 1 puff INHALATION QID PRN #8 gm 08/26/23 [Rx] Escitalopram [Lexapro] 20 mg PO HS #30 tab 08/26/23 [Rx] Metoprolol Succinate (ER) [Toprol XL] 25 mg PO DAILY #30 tab 08/26/23 [Rx] Nicotine 21Mg/24Hr Patch [Habitrol] 1 each TRANSDERM DAILY #6 patch 08/26/23 [Rx] lisinopriL [Zestril] 10 mg PO DAILY #30 tab 08/26/23 [Rx] Follow up Appointment(s)/Referral(s): Kirsten May MD [STAFF PHYSICIAN] - 09/26/23 9:15 am Cielo Cantu MD [Medical Doctor] - 08/30/23 (keep your appt with the MANAGER [facility] on tuesday) Ambulatory/Diagnostic Orders: Basic Metabolic Panel [LAB.AMB] Time Frame: 3 Days, Location: None Selected Discharge Disposition: HOME SELF-CARE
== END 2023-08-26 15:06 | disposition home or self-care (01) | DRG 192 ==
LOC: EC 15:28 → 6NMEDSUR 19:26 → OBSVTOIN 08-24 14:30
PROVIDERS: ADMIT Hospitalist; ATTEND Hospitalist
DX: J44.1 Chronic obstructive pulmonary disease with (acute) exacerbation (principal); I16.0 Hypertensive urgency; I10 Essential (primary) hypertension; F41.9 Anxiety disorder, unspecified; F17.210 Nicotine dependence, cigarettes, uncomplicated; F10.229 Alcohol dependence with intoxication, unspecified; Z79.51 Long term (current) use of inhaled steroids; Z28.310 Unvaccinated for COVID-19; Z88.2 Allergy status to sulfonamides; Z71.6 Tobacco abuse counseling; R19.7 Diarrhea, unspecified; R59.0 Localized enlarged lymph nodes; Z79.899 Other long term (current) drug therapy; J40 Bronchitis, not specified as acute or chronic
CPT/HCPCS: 36415; 71046; 71275; 80053; 83690; 83735; 83880; 84100; 84145; 84484; 85025; 85379; 85610; 85730; 93005; 94640; 96361; 96374; 96375; 99291

== ENCOUNTER 2024-09-20 04:56 | Emergency (ER) | payer BC ==
[2024-09-20 05:07] VITALS: RESP 20
--- NOTE | 2024-09-20 05:39 | ED ---
General Adult HPI - General Chief complaint: Back Pain/Injury Stated complaint: Lower Back Pain Time Seen by Provider: 09/20/24 05:10 Source: patient Mode of arrival: ambulatory - History of Present Illness Initial comments: Patient is a pleasant 54 y/o female PMH HTN, presenting today for back pain. Pt was recently diagnosed with vertigo and was doing vertigo exercises last night, involving twisting and doing somersaults when she began having left sided back pain. Described as spasming in nature. Exacerbated by movements, nonradiating. Has trialed 600 mg ibuprofen without relief of pain. Denies midline back pain, fall/recent injury, numbness, LE numbness or weakness, difficulty with urination/incontinence of urine, incontinence of stool, saddle anesthesia, fevers, chills, vomiting, nausea, chest pain, shortness of breath, abdominal pain, nausea, vomiting, diarrhea, dysuria, hematuria, urinary frequency, IVDU, or history of cancers. - Related Data Previous Rx's Medication Instructions Recorded Benzonatate [Tessalon Perles] 100 mg PO TID PRN #30 cap 08/25/23 Budesonide-Formot 160-4.5 Mcg 2 puff INHALATION RT-BID #1 each 08/25/23 [Symbicort 160-4.5 Mcg Inhaler] Folic Acid 1 mg PO DAILY #30 tab 08/25/23 HYDROcodone/APAP 5-325MG [[place] 1 each PO Q6HR PRN #12 tab 08/25/23 5-325] Multivitamins, Thera [Multivitamin 1 each PO DAILY #30 tab 08/25/23 (formulary)] Albuterol Inhaler [Ventolin Hfa 1 puff INHALATION QID PRN #8 gm 08/26/23 Inhaler] Escitalopram [Lexapro] 20 mg PO HS #30 tab 08/26/23 Metoprolol Succinate (ER) [Toprol 25 mg PO DAILY #30 tab 08/26/23 XL] Nicotine 21Mg/24Hr Patch [Habitrol] 1 each TRANSDERM DAILY #6 patch 08/26/23 lisinopriL [Zestril] 10 mg PO DAILY #30 tab 08/26/23 tiZANidine [Zanaflex] 2 mg PO Q8HR PRN #15 tablet 09/20/24 Allergies Allergy/AdvReac Type Severity Reaction Status Date / Time Sulfa (Sulfonamide Allergy Rash/Hives Verified 09/20/24 05:07 Antibiotics) Review of Systems ROS Statement: Those systems with pertinent positive or pertinent negative responses have been documented in the HPI. ROS Other: All systems not noted in ROS Statement are negative. Past Medical History Past Medical History: Hypertension, No Reported History Additional Past Medical History / Comment(s): chronic diarrhea History of Any Multi-Drug Resistant Organisms: None Reported Past Surgical History: Hysterectomy Additional Past Surgical History / Comment(s): laparoscopic ovary removed Past Anesthesia/Blood Transfusion Reactions: Motion Sickness, Postoperative Nausea & Vomiting (PONV) Past Psychological History: Anxiety Smoking Status: Current every day smoker Past Alcohol Use History: Daily Past Drug Use History: None Reported - Past Family History Mother Family Medical History: Pulmonary Embolus General Exam - General Exam Comments Initial Comments: PE: CONSTITUTIONAL: Uncomfortable appearing, difficulty finding a position of comfort, nontoxic, otherwise well-appearing SKIN: Warm, dry, no jaundice, hives or petechiae no erythema or skin changes overlying the back EYES: Pupils are equally round, extraocular movements intact without nystagmus, clear conjunctiva, non-icteric sclera HENT: Normocephalic, atraumatic, moist mucus membranes, oropharynx clear without exudates NECK: , Full range of motion, normal appearance PULMONARY: Clear to auscultation without wheezes, rhonchi, or rales, normal excursion, no accessory muscle use and no stridor CARDIOVASCULAR: Regular rate, rhythm, normal S1 and S2. No appreciated murmurs, rubs or gallops. No lower extremity edema, 2+ DP pulses in the bilateral lower extremities, extremities well-perfused GASTROINTESTINAL: Soft, active bowel sounds throughout, non-tender, non- distended, no palpable masses, no rebound or guarding. No hepatosplenomegaly, no CVA tenderness MUSCULOSKELETAL: Extremities have no gross deformity, no edema, redness, or swelling. No calf swelling. No midline spinal tenderness to palpation, palpable muscle spasm to the lower left lumbar muscles, negative straight leg testing NEUROLOGIC:_a/o x 3, GCS 15, normal mentation and speech. Moves all extremities x 4 without motor or sensory deficit PSYCHIATRIC:_normal mood and affect, thought process is clear and linear Course Vital Signs 07/10/25 07/10/25 04:58 07:12 Temperature 98.2 F 97.9 F Pulse Rate 90 77 Respiratory 20 20 Rate Blood Pressure 206/97 168/78 O2 Sat by Pulse 98 98 Oximetry Medical Decision Making - Medical Decision Making Was pt. sent in by a medical professional or institution (, PA, INFORMATION ENGINEER, urgent care, hospital, or correction...) When possible be specific @ -No Did you speak to anyone other than the patient for history (EMS, parent, family, police, friend...)? What history was obtained from this source @ -No Did you review nursing and triage notes (agree or disagree)? Why? @ -I reviewed nursing and triage notes Were old charts reviewed (outside hosp., previous admission, EMS record, old EKG, old radiological studies, urgent care reports/EKG's, correction records)? Report findings @ -Medical records reviewed -reviewed CTA report from 08/22/2023 showed no PE Differential Diagnosis (chest pain, altered mental status, abdominal pain women, abdominal pain men, vaginal bleeding, weakness, fever, dyspnea, syncope, headache, dizziness, GI bleed, back pain, seizure, CVA, palpatations, mental health, musculoskeletal)? @Differential Back Pain: Strain, zoster, cauda equina syndrome, epidural abscess, vertebral osteomyelitis, discitis, fracture, subluxation, disc herniation, DJD, spinal stenosis, dissection, AAA, pancreatitis, peptic ulcer disease, pyelonephritis, kidney stone, this is not meant to be an all-inclusive list. EKG interpreted by me (3pts min.). @ -As above X-rays interpreted by me (1pt min.). @ -None done CT interpreted by me (1pt min.). @ -None done U/S interpreted by me (1pt. min.). @ -None done What testing was considered but not performed or refused? (CT, X-rays, U/S, labs)? Why? @ -CT of the abdomen pelvis and/or spine were considered however patient has no red flag symptoms, otherwise benign exam, no additional symptoms, considered UA to assess for hematuria however pt experienced vast improvement in symptoms with pain control, denies hematuria, dysuria or other urinary symptoms, had no CVA TTP and no hx ureterolithiasis, discussed with pt awaiting UA vs discharge and pt preferred discharge home What meds were considered but not given or refused? Why? @ -None Did you discuss the management of the patient with other professionals (professionals i.e. , PA, INFORMATION ENGINEER, lab, RT, psych nurse, psychologist social, grounds foreman, teacher, community resource officer, rehabilitation case coordinator)? Give summary @ -No Was smoking cessation discussed for >3mins.? @ -No Was critical care preformed (if so, how long)? @ -No Were there social determinants of health that impacted care today? How? (Homelessness, low income, unemployed, alcoholism, drug addiction, transportation, low edu. Level, literacy, decrease access to med. care, residential, rehab)? @ -No Was there de-escalation of care discussed even if they declined (Discuss DNR or withdrawal of care, Hospice)? @ -No What co-morbidities impacted this encounter? (DM, HTN, Smoking, COPD, CAD, Cancer, CVA, ARF, Chemo, Hep., AIDS, mental health diagnosis, sleep apnea, morbid obesity)? @ -HTN Was patient admitted / discharged? Hospital course, mention meds given and route, prescriptions, significant lab abnormalities, going to OR and other pertinent info. @ Discharged- This is a pleasant 54 y/o female, hx as above, presenting for left sided low back pain x 1 day. Spasming in nature. Vital signs on arrival significant for a blood pressure of 206/97, otherwise no tachycardia or fever. I suspect HTN is likely 2/2 pain, as pt appears very uncomfortable, noting spasms in her back with movements. Denies shortness of breath, chest pain, abdominal pain, numbness/weakness. Discussed with pt plan for pain control, UA. On reassessment pt appears much more comfortable, pain improved. UA pending. Discussed awaiting UA vs discharge at this time, pt was okay with discharge at this point. Pt discharged with muscle relaxants, instructed to follow up with PCP and/or ortho-spine, discussed w/ pt signs and symptoms to monitor for warranting return to the ED. In my medical judgment there is currently no evidence of an immediate life- threatening or surgical condition. Discharge is therefore indicated at this time. Discharge treatment instructions, follow up instructions, and appropriate emergency department return precautions were discussed with the patient and/or medical decision maker. Patient and/or medical decision maker expressed understanding of and agreed with the treatment plan, follow up instructions, and emergency department return precaution. All patient's and/or medical decision maker's questions were answered. The patient was advised that a small risk still exists that a serious condition could develop and was therefore instructed to return to the ED for any changes in symptoms, persistent symptoms, inability to obtain proper follow-up or for any further concerns. Patient received verbal and written instructions for this condition. Undiagnosed new problem with uncertain prognosis? @ -No Drug Therapy requiring intensive monitoring for toxicity (Heparin, Nitro, Insulin, Cardizem)? @ -No Were any procedures done? @ -No Diagnosis/symptom? @Lumbar back pain Acute, or Chronic, or Acute on Chronic? @acute Uncomplicated (without systemic symptoms) or Complicated (systemic symptoms)? @ -uncomplicated Side effects of treatment? @ -No Exacerbation, Progression, or Severe Exacerbation? @ -No Poses a threat to life or bodily function? How? (Chest pain, [place], [place], pneumonia, PE, COPD, DKA, ARF, appy, cholecystitis, CVA, Diverticulitis, Homicidal, Suicidal, threat to staff... and all critical care pts) @ -No Disposition Clinical Impression: Low back strain Disposition: HOME SELF-CARE Condition: Good Instructions (If sedation given, give patient instructions): Acute Low Back Pain (ED) Additional Instructions: Every disease is a spectrum and a small chance still exists that a serious condition could develop, for this reason, please monitor yourself closely for new, changing or worsening symptoms, symptoms that do not continue to improve over the next week, sudden worsening of pain, uncontrolled pain, any of the symptoms listed below, burning with urination, blood in your urine or UTI symptoms, fever, inability to tolerate/keep down fluids or your medications, inability to follow up with outpatient providers as instructed and should you experience these symptoms or should you have any further concerns for your wellbeing please return to the ED or call 911 immediately. Return to the emergency department if you develop constipation, urinary retention, loss of bowel or bladder function, numbness or tingling into the rectum, groin, or develop fevers and chills Your pain can be treated with ibuprofen and acetaminophen. You can take up to 400-600 mg of ibuprofen (Advil, Motrin) 3 times daily (every 8 hours) but can also use lower doses if this relieves your pain. Some people prefer naproxen (Aleve, Naprosyn) which can be taken in doses of 500 mg up to twice a day. Do not take both of these medicines together, and do not combine either with ketorolac (Toradol), meloxicam (Mobic), or indomethacin (Tivorbex). Some people can develop stomach discomfort with higher doses of either ibuprofen or naproxen, if this develops decrease your dose or stop taking it. If you need to take this dose daily for more than a week, please schedule an appointment for re-evaluation with your PCP. Please take these medications with food. You can take up to 1000 mg of acetaminophen (Tylenol) every 6 hours. Be careful as this is included in some medicines like Nyquil, [place], Percocet, Vicodin, STANBACK, Goody's Powders, and Excedrin. Take provided muscle relaxants only as needed. You can also use lidocaine patches for topical pain. You can purchase 4% patches over the counter at most drug stores. These can be helpful for pain from your muscles or bones. PLEASE call your primary care physician as soon as possible to arrange / discuss plan for followup appointment. Appointment in the next 1-3 days is strongly encouraged if possible. PLEASE let us know here before you leave if there is anything further we can do to be of any assistance. Take care and feel Better! Prescriptions: tiZANidine [Zanaflex] 2 mg PO Q8HR PRN #15 tablet PRN Reason: Muscle Spasm Is patient prescribed a controlled substance at d/c from ED?: No Referrals: Richar Ortiz DO [Primary Care Provider] - 1-2 days Nicolas Nina DO [Doctor of Osteopathic Medicine] - 1-2 days
[2024-09-20] MEDS: KETOROLAC 15 MG/ML 1 ML VIAL IM STA (05:44)
[2024-09-20] MEDS: HYDROmorphone 1 MG/ML 1 ML SYRINGE IM STA (05:45)
[2024-09-20] MEDS: LIDOCAINE 4% PATCH TOPICAL ONE (05:46)
[2024-09-20 07:13] VITALS: BP 168/78; PULSE 77; TEMP 97.9
== END 2024-09-20 07:13 | disposition home or self-care (01) ==
LOC: EC 04:56
DX: S39.012A Strain of muscle, fascia and tendon of lower back, initial encounter (principal); F17.200 Nicotine dependence, unspecified, uncomplicated; Z88.2 Allergy status to sulfonamides; X50.1XXA Overexertion from prolonged static or awkward postures, initial encounter
CPT/HCPCS: 99283; 96372 ×2; J1171; J1885